=== PATIENT | male | born 1980 | race Caucasian/White ===

== ENCOUNTER 2019-10-17 12:49 | Emergency (ER) | payer SELFPAY ==
[2019-10-17 13:01] VITALS: BP 118/82; PULSE 105; RESP 16; TEMP 36.7; O2SAT 98; BMI 32.3
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
--- NOTE | 2019-10-17 13:16 | W.ED.ANIMALB ---
HPI - Animal Bite General: Chief Complaint: Animal Bite Stated Complaint: skunk bite Time Seen by Provider: 10/17/19 13:06 Source: patient Limitations: no limitations History of Present Illness: HPI narrative: 39-year-old male states he was bit by a skunk 2 days ago. He was bit in his left calf. He states had some body aches since then. He states he called animal control and they recommended come up for rabies vaccination. He denies any fevers. He denies any vomiting. Denies any worsening improving factors. MD complaint: animal bite Onset (ago): day(s) Associated symptoms: Deny chills, fever(s) or headache(s) Review of Systems Const: Denies: fever(s), chills, body aches or change in appetite Eyes: Denies: blurry vision or eye discomfort ENMT: Denies: throat pain or dental pain Card: Denies: chest pain Resp: Denies: dyspnea GI: Denies: abdominal pain, nausea, vomiting or diarrhea : Denies: dysuria Musc: Denies: neck pain or back pain Skin/Breast: Denies: rash Neuro: Denies: headache(s) Psych: Denies: depression Richardson/Lymph: Denies: easy bruising All/Imm: Denies: urticaria PFSH ED PFSH: Social History (Updated 10/17/19 @ 13:04 by Dinora Mulligan RN) Smoking and tobacco status: current every day smoker Physical Exam Const: COMMON NORMALS: no acute distress, patient oriented x3 and healthy appearing HENMT: COMMON NORMALS: normocephalic and atraumatic HEAD & SCALP: normocephalic and atraumatic Eye: COMMON NORMALS: Equal, round and reactive pupils present and EOMs intact bilaterally PUPIL: Yes Equal, round and reactive pupils present Neck/C-Spine: COMMON NORMALS: full ROM and supple Chest: COMMONS NORMALS: normal inspection of the chest and normal palpation of entire chest wall Resp: COMMON NORMALS: normal respiratory effort, No retractions, No use of accessory muscles and clear to auscultation bilaterally AUSCULTATION: clear to auscultation bilaterally Cardio: COMMON NORMALS: regular rate, regular rhythm and No murmurs present (Cardio) RATE: regular rate RHYTHM: regular rhythm GI: COMMON NORMALS: Normal to inspection, nondistended, normoactive bowel sounds present, Soft to palpation, non-tender and no masses PALPATION: Yes Soft to palpation Extremity: COMMON NORMALS: normal to inspection and full ROM Neuro: COMMON NORMALS: patient oriented x3, moves all extremities and no focal motor deficits Psych: COMMON NORMALS: mental status grossly normal, Normal thought process present and cooperative THOUGHT PROCESS: Normal thought process present Skin: COMMON NORMALS: no rashes or lesions noted NARRATIVE SKIN EXAM: Scratch and bite wound to left lower calf with no signs of infection GENERAL SKIN EXAM: no rashes or lesions noted Course Vital Signs: Vital signs: Vital Signs Temperature 98.1 F 10/17/19 13:01 Pulse Rate 105 H 10/17/19 13:01 Respiratory Rate 16 10/17/19 13:01 Blood Pressure 118/82 10/17/19 13:01 Pulse Oximetry 98 10/17/19 13:01 MDM - Animal Bite MDM Narrative: Medical decision making narrative: Patient presents here with a skunk bite. Patient's well-appearing here and has no signs of cellulitis. We will start him on rabies vaccine he is return in 3 days. Discharge Plan Discharge Patient Disposition: Home Clinical Impression: Bite by animal Condition: Stable Prescriptions: New ondansetron 4 mg tablet,disintegrating 4 mg PO Q6H PRN (Reason: nausea and vomiting) Qty: 14 RF: 0 Naprosyn 500 mg tablet 500 mg PO BID PRN (Reason: pain) Qty: 20 RF: 0 Discharge Orders: Discharge Order (Routine); Ordered 10/17/19 Ordered By: Rodney Summers Discharge Diet: Advance as tolerated Discharge Activity: Resume usual activity Patient Instructions: Rabies (ED) Activity Restrictions/Additional Instructions: return in 3 days Coding Level of Care Code ED Child And Adolescent Therapist for Cheng Torrez
[2019-10-17] MEDS: ketorolac 60 mg/2 mL INJ IM (13:30)
[2019-10-17] MEDS: ondansetron 2 mg/ML SDV 2 mL 4 MG IM (13:32)
--- NOTE | 2019-10-17 16:00 | PC.NURSE ---
nurse went to apologize for pt's wait and found room empty. ED provider notified. Attempts made to contact pt and ask him to return back to the ER. Pt did not return
== END 2019-10-17 15:00 | disposition home or self-care (01) ==
PROVIDERS: Emergency Provider Emergency Medicine
DX: S81.852A Open bite, left lower leg, initial encounter (principal); W55.81XA Bitten by other mammals, initial encounter; F17.210 Nicotine dependence, cigarettes, uncomplicated
CPT/HCPCS: 12345; 96372; 99281; 99283; J1885; J2405

== ENCOUNTER 2019-11-15 12:45 | Emergency (ER) | payer MEDICAID, SELFPAY ==
[2019-11-15] MEDS: ondansetron 2 mg/ML SDV 2 mL 4 MG IVP (12:45)
[2019-11-15 12:46] VITALS: BP 171/95; PULSE 125; RESP 18; O2SAT 100; BMI 29.0
[2019-11-15] MEDS: morphine 4 mg/mL SDV 1 mL 8 MG IVP ×2 (12:55→13:10)
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
[2019-11-15] MEDS: lactated ringers 1,000 ML 999 ML IV (13:07)
[2019-11-15 13:15] LABS: Basophils # 0.1 10^3/uL (0.0-0.1); Basophils % 0.6 %; Eosinophils # 0.2 10^3/uL (0.0-0.8); Eosinophils % 1.2 %; Hematocrit 44.9 % (42.0-52.0); Hemoglobin 14.5 g/dL (11.7-16.6); Lymphocytes # 6.3 10^3/uL (0.8-4.8); Lymphocytes % 40.2 %; Mean Corpuscular HGB Conc 32.3 g/dL (30.0-36.0); Mean Corpuscular Hemoglobin 28.8 pg (28.0-34.0); Mean Corpuscular Volume 89.1 fL (80-94); Mean Platelet Volume 9.8 fL (7.4-10.4); Monocytes # 1.1 10^3/uL (0.2-0.9); Monocytes % 7.2 %; Neutrophils # 7.87 10^3/uL (1.8-7.7); Neutrophils % 50.4 %; Nucleated Red Blood Cells % 0 %; Platelet Count 322 10^3/cmm (130-400); Red Blood Count 5.04 10^6/uL (4.1-5.3); Red Cell Distribution Width 13.2 % (12.1-15.1); White Blood Count 15.6 10^3/uL (4.0-10.0)
[2019-11-15 13:17] VITALS: BP 173/97; PULSE 94; RESP 22; O2SAT 100
[2019-11-15 13:20] VITALS: O2SAT 100
[2019-11-15 13:38] LABS: Alanine Aminotransferase 73 U/L (0-41); Albumin Level 4.6 g/dL (3.5-5.2); Alkaline Phosphatase 92 IU/L (40-130); Blood Urea Nitrogen 17 mg/dL (6-20); Calcium 9.4 mg/dL (8.5-10.5); Carbon Dioxide 23 mmol/L (22-29); Chloride 98 mmol/L (98-107); Globulin 3.8 g/dL (1.3-4.6); Glomerular Filtration Rate 82.8 mL/min (90-130); Glucose 119 mg/dL (65-115); Magnesium 2.1 mg/dL (1.7-2.3); Osmolality Calculated 282 mOsm/kg (285-295); Sodium 137 mmol/L (136-145); Total Bilirubin 0.2 mg/dL (0.15-1.2); Total Protein 8.4 g/dL (6.6-8.7)
[2019-11-15] MEDS: succinylcholine 20 mg/mL SDV 10mL 100 MG IVP (13:42)
[2019-11-15 13:43] VITALS: BP 178/111; PULSE 93; RESP 15; O2SAT 100
[2019-11-15] MEDS: propofol 1,000 MG/100 ML INJ 2.4 MG IV (13:45)
[2019-11-15] MEDS: tetanus-dipt-pertussis 0.5 mL SDV IM (13:45)
[2019-11-15 13:49] LABS: Anion Gap 19.9 (5-19); Aspartate Amino Transferase 56 U/L (0-40); Potassium 3.9 mmol/L (3.5-5.1)
[2019-11-15 13:50] LABS: Creatine Phosphokinase 359 U/L (39-308)
== END 2019-11-15 14:21 ==
PROVIDERS: Emergency Provider Family Medicine
DX: T21.22XA Burn of second degree of abdominal wall, initial encounter (principal); T24.211A Burn of second degree of right thigh, initial encounter; T24.212A Burn of second degree of left thigh, initial encounter; T24.231A Burn of second degree of right lower leg, initial encounter; T24.232A Burn of second degree of left lower leg, initial encounter; T22.20XA Burn of second degree of shoulder and upper limb, except wrist and hand, unspecified site, initial encounter; T20.29XA Burn of second degree of multiple sites of head, face, and neck, initial encounter; T23.201A Burn of second degree of right hand, unspecified site, initial encounter; T23.202A Burn of second degree of left hand, unspecified site, initial encounter; T31.50 Burns involving 50-59% of body surface with 0% to 9% third degree burns; X08.8XXA Exposure to other specified smoke, fire and flames, initial encounter; F17.210 Nicotine dependence, cigarettes, uncomplicated; Z23 Encounter for immunization
CPT/HCPCS: 12345; 31500; 71045; 80053; 82550; 83735; 85025; 90471; 90715; 96365; 96367; 96375; 96376; 99283; 99291; J0330; J2270; J2405; J2704; J3490

== ENCOUNTER 2019-12-07 06:27 | Emergency (ER) | payer MEDICAID, SELFPAY ==
[2019-12-07 06:31] VITALS: BP 150/89; PULSE 103; RESP 18; TEMP 36.7; O2SAT 99; BMI 29.0
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
[2019-12-07 06:57] VITALS: BP 150/89; PULSE 101; RESP 18; O2SAT 99
== END 2019-12-07 06:58 | disposition home or self-care (01) ==
LOC: ER 07:09
PROVIDERS: Emergency Provider Emergency Medicine
DX: L02.31 Cutaneous abscess of buttock (principal); F17.210 Nicotine dependence, cigarettes, uncomplicated
CPT/HCPCS: 10060; 12345; 99281

== ENCOUNTER 2020-05-22 12:18 | Emergency (ER) | payer MEDICAID, SELFPAY ==
[2020-05-22 12:28] VITALS: BP 157/94; PULSE 97; RESP 14; TEMP 36.9; O2SAT 98; BMI 26.6
--- NOTE | 2020-05-22 12:43 | USR_ITS ---
PROCEDURE INFORMATION: Exam: US Scrotum Exam date and time: 05/22/2020 12:48 PM Age: 39 years old Clinical indication: Groin pain and scrotum pain; Additional info: Left testicular pain ? torsion TECHNIQUE: Imaging protocol: Real-time ultrasound of the scrotum and contents with color Doppler and image documentation. COMPARISON: No relevant prior studies available. FINDINGS: Right testicle: The right testicle measures 4.0 x 2.3 x 3.5 cm. Homogeneous echotexture with no masses. Normal color flow and waveforms within the testicle. Left testicle: The left testicle measures 3.9 x 2.8 x 3.8 cm. There is a large lobular heterogeneously hypoechoic area at the upper pole occupying approximately 75% of the testicle with no blood flow; mild hyperemia within the remainder of the testicle which appears relatively homogeneous, with normal waveforms. Epididymides: The right epididymal head measures 14 x 8 mm and contains 14 x 5 mm and contains a few hypoechoic cysts measuring up to 2 mm. The left epididymal head measures approximately 14 x 8 mm, with hyperemia. Scrotum: Bilateral small hypoechoic hydroceles. US/US scrotum [id number] IMPRESSION: 1. Large lobular relatively hypoechoic area occupying approximately 75% of the left testicle with no blood flow, concerning for torsion with developing infarct. There is hyperemia within the remainder of the testicle as well as epididymis. 2. Normal right testicle. 3. Incidental note of small bilateral hydroceles and few punctate right epididymal cysts/spermatoceles.
--- NOTE | 2020-05-22 12:50 | W.ED.MALEGU ---
HPI - Male Genitourinary General: Chief complaint: Urogenital-Male Stated complaint: PAIN FROM L HIP UP TO NAVAL Time Seen by Provider: 05/22/20 12:30 Source: patient Mode of arrival: ambulatory Limitations: no limitations History of Present Illness: HPI Narrative: 39-year-old male who presents to the emergency department with left testicular pain of 3 days duration. The pain has been gradually getting worse and now radiates to his left inguinal region. Because of the severity of the pain he is here to be evaluated. MD Complaint: testicle pain Onset (ago): day(s) (3) Duration: constant Location: left testicle Radiation: left inguinal region Severity: severe Quality: stabbing Exacerbating factors: palpation and movement Associated symptoms: Deny discharge, dysuria, fevers/chills, hematuria, nausea, rash, swelling, urinary incontinence, urinary retention, mass or vomiting Review of Systems General: Reports: 10 or more systems reviewed and unremarkable except in HPI and below Const: Denies: fever(s), chills or body aches Eyes: Denies: change in vision or blurry vision ENMT: Denies: throat pain, enlarged tonsils, odynophagia, hoarseness, mouth pain or swelling of lips/tongue Card: Denies: palpitations, irregular heart rhythm, edema or swelling of feet/ankles Resp: Denies: dyspnea, productive cough or non-productive cough GI: Denies: nausea or vomiting : Denies: dysuria, urinary incontinence or hematuria Musc: Denies: neck pain, back pain or extremity swelling Skin/Breast: Denies: rash, pruritus or erythema Neuro: Denies: headache(s), numbness in extremities or weakness in extremities Endo: Denies: polyuria, polydipsia or tired all the time [facility] ED PFSH: Social History Smoking and tobacco status: current every day smoker Physical Exam Const: COMMON NORMALS: no acute distress, average body habitus, patient oriented x3, no limitations, healthy appearing, alert and well nourished HENMT: COMMON NORMALS: normocephalic, atraumatic and moist oral mucous membranes HEAD & SCALP: normocephalic and atraumatic Neck/C-Spine: COMMON NORMALS: no meningeal signs and no JVD Resp: COMMON NORMALS: normal respiratory effort, No retractions, No use of accessory muscles, clear to auscultation bilaterally and percussion normal AUSCULTATION: clear to auscultation bilaterally PERCUSSION: percussion normal Cardio: COMMON NORMALS: no JVD, regular rate, regular rhythm, S1 normal heart sound present, S2 normal heart sound present, No gallops present (Cardio), No clicks present (Cardio), No murmurs present (Cardio), No rub (Cardio) and Peripheral pulses 2+ throughout RATE: regular rate RHYTHM: regular rhythm HEART SOUNDS: S1 normal heart sound present and S2 normal heart sound present PERIPHERAL PULSES: Peripheral pulses 2+ throughout GI: COMMON NORMALS: Normal to inspection, nondistended, normoactive bowel sounds present, Soft to palpation, non-tender, No hepatosplenomegaly present, no masses and no bruits PALPATION: Yes Soft to palpation and Yes No hepatosplenomegaly present : COMMON NORMALS: Yes no CVA tenderness BLADDER/KIDNEY EXAM: Yes no CVA tenderness PENIS: uncircumcised MEATUS: meatus normal SCROTUM: Yes testes descended bilaterally TESTES: Yes testicular swelling Testicular swelling laterality: left, Yes testicular tenderness Testicular tenderness laterality: left and Yes high-riding testicle High-riding testicle laterality: left OTHER: Swollen indurated left testicle. It appears to lie in a [place] and Clapper formation. Back/Pelvis: COMMON NORMALS: no CVA tenderness Extremity: COMMON NORMALS: normal to inspection, full ROM, capillary refill normal, no calf tenderness and no pedal edema Neuro: COMMON NORMALS: patient oriented x3 SENSORIUM/ORIENTATION: Yes alert MENINGEAL SIGNS: Yes no meningeal signs Course Reevaluation(s): Reevaluation #1: Discussed his imaging findings with him. Explained that he likely has testicular torsion and will require emergency surgery. The urologist in this facility is on vacation for the next week and so he will need to be transferred urgently as soon as possible. He preferred to go to [facility] as he has been treated there in the past. Time: 13:50 Consultations: Consultation #1: Discussed the patient with Dr. Willoughby, ED physician at [facility] in [place] and he kindly accepted the patient to his service. Time: 14:03 Vital Signs: Vital signs: Vital Signs Temperature 98.4 F 05/22/20 12:28 Pulse Rate 94 05/22/20 14:11 Respiratory Rate 18 05/22/20 14:26 Blood Pressure 149/92 05/22/20 14:11 Pulse Oximetry 98 05/22/20 14:11 MDM - Male MDM Narrative: Medical decision making narrative: 39-year-old male who presents to the emergency department with left testicular pain. On evaluation in the emergency department the symptoms are consistent with testicular torsion. He is emergently transferred to [facility] in [place] for further evaluation and management as the urologist in this facility is on vacation for the next week. Medical Records: Attestation: I reviewed the patient's medical records. Lab Data: Labs: Lab Results 05/22/20 Range/Units 13:43 Urine Color Dark yellow (Yellow) Urine Appearance Clear (CLEAR) Urine pH 6 (5-7) Ur Specific Gravit y 1.020 (1.005-1.030) Urine Protein Neg (Negative) Urine Glucose (UA) 1+ (Normal) Urine Ketones Negative (Negative) Urine Blood Neg (Negative) Urine Nitrate Negative (Negative) Urine Bilirubin Neg (Negative) Urine Urobilinogen 1 H (Negative) mg/dL Ur Leukocyte Emma ase Negative (Negative) Imaging Data: US: Attestation: I personally reviewed and interpreted this imaging study as follows: Radiologist's impression: [address] [address] Ultrasound Report Signed with Addenda Patient: Eduardo Ochoa #: [id number] : 1980Acct#:[id number] Age/Sex: 39 / MADM Date: 05/22/20 Loc: [facility]/Bed: Attending Dr: Ordering Provider/Ordering MD: Adriane Sorensen MD, [facility] Date of Service: 05/22/20 Procedure(s): US scrotum [id number] Accession Number(s): [id number] Report Number: [id number] ADDENDUM US/US scrotum [id number] Addendum: Findings discussed with and acknowledged by ADRIANE Sosa at 05/22/2020 1:59 PM CDT with any questions answered. Addendum Dictated By: Chuck Noonan MD Addendum Signed By: Chuck Noonan MDSigned Date/Time:05/22/20 1401 Addendum Cosigned By: PROCEDURE INFORMATION: Exam: US Scrotum Exam date and time: 05/22/2020 12:48 PM Age: 39 years old Clinical indication: Groin pain and scrotum pain; Additional info: Left testicular pain ? torsion TECHNIQUE: Imaging protocol: Real-time ultrasound of the scrotum and contents with color Doppler and image documentation. COMPARISON: No relevant prior studies available. FINDINGS: Right testicle: The right testicle measures 4.0 x 2.3 x 3.5 cm. Homogeneous echotexture with no masses. Normal color flow and waveforms within the testicle. Left testicle: The left testicle measures 3.9 x 2.8 x 3.8 cm. There is a large lobular heterogeneously hypoechoic area at the upper pole occupying approximately 75% of the testicle with no blood flow; mild hyperemia within the remainder of the testicle which appears relatively homogeneous, with normal waveforms. Epididymides: The right epididymal head measures 14 x 8 mm and contains 14 x 5 mm and contains a few hypoechoic cysts measuring up to 2 mm. The left epididymal head measures approximately 14 x 8 mm, with hyperemia. Scrotum: Bilateral small hypoechoic hydroceles. US/US scrotum [id number] IMPRESSION: 1. Large lobular relatively hypoechoic area occupying approximately 75% of the left testicle with no blood flow, concerning for torsion with developing infarct. There is hyperemia within the remainder of the testicle as well as epididymis. 2. Normal right testicle. 3. Incidental note of small bilateral hydroceles and few punctate right epididymal cysts/spermatoceles. Dictated By:Chuck Noonan MD Signed By:Chuck Noonan MDSigned Date/Time:05/22/20 1344 DD/ 1343 Discharge Plan Discharge Patient Disposition: Xfer Short-Term Hosp Clinical Impression: Left testicular torsion Condition: Stable Discharge Orders: Transfer Out of Facility (Order); Ordered 03/20/21 Ordered By: Adriane Sorensen Coding Level of Care Code ED Seasonal Delivery Driver for Chg Fwd Exam Comprehensive
[2020-05-22 13:55] LABS: Add Urine Microscopic? NO
[2020-05-22 14:04] LABS: Bilirubin Urine Neg (Negative); Blood Urine Neg (Negative); Glucose Urine UA 1+ (Normal); Ketones Urine Negative (Negative); Leukocyte Esterase Urine Negative (Negative); Nitrate Urine Negative (Negative); Protein Urine Neg (Negative); Urine Appearance Clear (CLEAR); Urine Color Dark Yellow (Yellow); Urobilinogen Urine 1 mg/dL (Negative); pH Urine 6 (5-7)
[2020-05-22 14:10] VITALS: BP 149/92; PULSE 94; RESP 18; O2SAT 98
[2020-05-22 14:11] VITALS: BP 149/92; PULSE 94; RESP 18; O2SAT 98
[2020-05-22 14:26] VITALS: RESP 18
[2020-05-22] MEDS: ondansetron 2 mg/ML SDV 2 mL 4 MG IVP (14:26)
[2020-05-22] MEDS: morphine 4 mg/mL SDV 1 mL IVP (14:26)
== END 2020-05-22 14:37 | disposition short-term general hospital (02) ==
PROVIDERS: Emergency Provider Family Medicine
DX: N44.00 Torsion of testis, unspecified (principal); F17.210 Nicotine dependence, cigarettes, uncomplicated
CPT/HCPCS: 76870; 81003; 96374; 96375; 99285; J2270; J2405

== ENCOUNTER 2023-10-02 14:49 | Emergency (ER) | payer MEDICAID, SELFPAY ==
[2023-10-02 14:53] VITALS: BP 144/90; PULSE 94; RESP 18; TEMP 37.3; O2SAT 99
--- NOTE | 2023-10-02 14:58 | ED_ITS ---
HPI - Headache 2 General: Chief Complaint: Headache Stated Complaint: [place] 2 days Time Seen by Provider: 10/02/23 14:52 Source: patient Mode of arrival: ambulatory Limitations: no limitations History of Present Illness: Patient is a 43-year-old male who presents to ED today with complaint of a headache over the past 2 days. No known injury or trauma. He states he has also felt feverish with some body aches. No documented fevers. He arrives here with stable vital signs. Patient states he is homeless so has been out in the heat recently. Previous drug/alcohol use but states he has been clean for over a month and a half . Patient is not having any neck or back pain. He is not having any neurologic deficits. No visual changes. Denies nausea or vomiting. He has no history of migraine headaches. He is currently rating his pain at a 5/10. Patient states it was worse when he woke up this morning and has improved during the day. MD elicited complaint: headache Onset (ago): day(s) Severity: moderate Pain scale (0-10): 5 Exacerbating factors: none Associated symptoms: Reports fever(s) (subjective); Deny chest pain, confusion, malaise, nausea, rash or vomiting Treatments prior to arrival: none Review of Systems 2 Const: Reports: fever(s) (subjective) and body aches; Denies: chills, fatigue or malaise Eyes: Denies: change in vision, blurry vision, photophobia, floaters or seeing flashes ENMT: Denies: throat pain, odynophagia, ear or mastoid pain, nasal discharge, nasal congestion or sinus pain Card: Denies: chest pain or palpitations Resp: Denies: dyspnea GI: Denies: abdominal pain, nausea, vomiting or diarrhea Musc: Denies: neck pain, back pain, extremity pain or joint pain Skin/Breast: Denies: rash Neuro: Reports: headache(s); Denies: numbness in extremities, weakness in extremities, sensory changes, lack of coordination, difficulty walking, frequent falls, dizziness, vertigo, confusion, behavioral changes, Slurred speech present, difficulty communicating thoughts or seizure-like activity PFSH ED 2 PFSH: Medical History Psychiatric care Social History (Reviewed 10/02/23 @ 15:16 by KALEB Ruvalcaba Smoking and tobacco/nicotine status: current every day tobacco/nicotine user Physical Exam 2 Const: COMMON NORMALS: no acute distress, average body habitus, patient oriented x3, no limitations, healthy appearing, alert and well nourished G ENERAL APPEARANCE: cooperative ORIENTATION/CONSCIOUSNESS: Yes awake, Yes oriented to person, Yes oriented to place and Yes oriented to time HENMT: COMMON NORMALS: normocephalic and atraumatic HEAD & SCALP: normal to inspection, normocephalic and atraumatic FACE & SINUS: normal facial exam TEETH & GINGIVA: Yes poor dentition THROAT: posterior oropharynx normal Eye: COMMON NORMALS: Equal, round and reactive pupils present and EOMs intact bilaterally GENERAL EYE: appearance normal, both eyes and all related structures and normal light reflex PUPIL: Yes Equal, round and reactive pupils present DIRECT OPHTHALMOSCOPY: Yes normal light reflex Neck/C-Spine: COMMON NORMALS: full ROM, no lymphadenopathy, supple and no meningeal signs CERVICAL SPINE: Yes cervical ROM normal, No pain with cervical ROM and No Cervical spine tenderness Chest: COMMONS NORMALS: normal inspection of the chest Resp: COMMON NORMALS: normal respiratory effort and clear to auscultation bilaterally AUSCULTATION: clear to auscultation bilaterally Cardio: COMMON NORMALS: regular rate and regular rhythm RATE: regular rate RHYTHM: regular rhythm GI: COMMON NORMALS: Normal to inspection, nondistended, normoactive bowel sounds present, Soft to palpation, non-tender, No hepatosplenomegaly present and no masses PALPATION: Yes Soft to palpation and Yes No hepatosplenomegaly present : COMMON NORMALS: Yes no CVA tenderness BLADDER/KIDNEY EXAM: Yes no CVA tenderness Back/Pelvis: COMMON NORMALS: no CVA tenderness, thoracic and lumbar spine normal to inspection, no thoracic nor lumbar tenderness, thoraco-lumbar ROM normal and straight leg raise negative bilaterally Extremity: COMMON NORMALS: normal to inspection GENERAL: Yes normal exam except as noted Neuro: RYAN COMA SCALE: document GCS findings [place] coma scale eye opening: Spontaneous Ryan coma scale verbal response: Orientated [place] coma scale motor response: Obey commands Ryan coma scale total score: 15 COMMON NORMALS: patient oriented x3, CN's II-XII intact bilaterally, moves all extremities, no focal motor deficits, no sensory deficits noted and gait normal SENSORIUM/ORIENTATION: Yes alert, Yes oriented to person, Yes oriented to place and Yes oriented to time MENINGEAL SIGNS: Yes no meningeal signs Skin: COMMON NORMALS: no rashes or lesions noted GENERAL SKIN EXAM: no rashes or lesions noted Course 2 Vital Signs: Vital signs: Vital Signs Temperature 99.1 F 10/02/23 14:53 Pulse Rate 94 10/02/23 14:53 Respiratory Rate 18 10/02/23 14:53 Blood Pressure 144/90 10/02/23 14:53 Pulse Oximetry 99 10/02/23 14:53 Oxygen Delivery Me thod Room Air 10/02/23 14:53 MDM - Headache Medical Decision Making Vitals stable. Labs overall unremarkable. Mild transaminitis that is unchanged compared to 2019. 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 States he received treatment while incarcerated. After fluids and meds here, he no longer has a headache. Rating a 0/10. Suspect dehydration for etiology as he is homeless and out in the heat all day. Return precautions given. Differential Diagnosis Likely headache Medical Records I reviewed the patient's medical records. Lab Data I reviewed the patient's lab results. 10/02/23 15:10 10/02/23 15:[address] 10/02/23 15:07 IMPRESSION: No acute intracranial abnormality. Laboratory Results WBC 9.57 10^3/uL (3.29-11.43) 10/02/23 15:10 RBC 4.91 10^6/uL (3.85-5.65) 10/02/23 15:10 Hgb 14.30 g/dL (11.27-16.99) 10/02/23 15:10 Hct 44.6 % (37-53) 10/02/23 15:10 MCV 90.8 fl (82-101) 10/02/23 15:10 MCH 29.1 pg (27-33) 10/02/23 15:10 MCHC 32.1 g/dL (30-55) 10/02/23 15:10 RDW 13.9 % (12.1-15.1) 10/02/23 15:10 Plt Count 232 10^3/cmm (157-399) 10/02/23 15:10 MPV 8.8 fL (7.4-10.4) 10/02/23 15:10 Neut % (Auto) 64.9 % 10/02/23 15:10 Lymph % (Auto) 22.7 % 10/02/23 15:10 [place] % (Auto) 8.5 % 10/02/23 15:10 Eos % (Auto) 2.8 % 10/02/23 15:10 Baso % (Auto) 0.6 % 10/02/23 15:10 Neut # (Auto) 6.21 10^3/uL (1.8-7.7) 10/02/23 15:10 Lymph # (Auto) 2.2 10^3/uL (0.8-4.8) 10/02/23 15:10 [place] # (Auto) 0.8 10^3/uL (0.2-0.9) 10/02/23 15:10 Eos # (Auto) 0.3 10^3/uL (0.0-0.8) 10/02/23 15:10 Baso # (Auto) 0.1 10^3/uL (0.0-0.1) 10/02/23 15:10 Nucleated RBC % (auto) 0 % 10/02/23 15:10 Nucleated RBCs # 0.0 /100WBC 10/02/23 15:10 Sodium 138 mmol/L (136-145) 10/02/23 15:10 Potassium 4.7 mmol/L (3.5-5.1) 10/02/23 15:10 Chloride 103 mmol/L (98-107) 10/02/23 15:10 Carbon Dioxide 28 mmol/L (22-29) 10/02/23 15:10 Anion Gap 11.7 (5-19) 10/02/23 15:10 BUN 12 mg/dL (6-20) 10/02/23 15:10 Creatinine 1.3 mg/dL (0.7-1.2) H 10/02/23 15:10 GFR Calculation 60.0 mL/min (90-130) L 10/02/23 15:10 Glucose 92 mg/dL (65-115) 10/02/23 15:10 Calculated Osmolality 285 mOsm/kg (285-295) 10/02/23 15:10 Calcium 8.8 mg/dL (8.5-10.5) 10/02/23 15:10 Total Bilirubin 0.2 mg/dL (0.15-1.2) 10/02/23 15:10 AST 47 U/L (0-40) H 10/02/23 15:10 ALT 66 U/L (0-41) H 10/02/23 15:10 Alkaline Phosphatase 94 U/L (40-130) 10/02/23 15:10 Total Protein 7.3 g/dL (6.6-8.7) 10/02/23 15:10 Albumin 4.1 g/dL (3.5-5.2) 10/02/23 15:10 Globulin 3.2 g/dL (1.3-4.6) 10/02/23 15:10 All radiology interpretation(s) finalized by discharge Discharge Plan Discharge Patient Disposition: Home Clinical Impression: Dehydration Headache Qualifiers: Headache type: unspecified Headache chronicity pattern: acute headache I ntractability: not intractable Qualified Code(s): R51.9 - Headache, unspecified Condition: Stable Prescriptions: No Action No Known Home Medications Discharge Orders: Discharge ED (Routine); Ordered 10/02/23 Ordered By: Aparna Keller Coding Level of Care Code ED Drop Count Associate for Ludag Lore
--- NOTE | 2023-10-02 15:07 | CTR_ITS ---
PROCEDURE INFORMATION: Exam: CT Head Without Contrast Exam date and time: 10/02/2023 3:18 PM Age: 43 years old Clinical indication: Pain; Headache TECHNIQUE: Imaging protocol: Computed tomography of the head without contrast. Radiation optimization: All CT scans at this facility use at least one of these dose optimization techniques: automated exposure control; mA and/or kV adjustment per patient size (includes targeted exams where dose is matched to clinical indication); or iterative reconstruction. COMPARISON: No relevant prior studies available. RADIATION DOSE METRICS: Total DLP (mGy-cm): 1139 FINDINGS: Brain: No midline shift. Ventricles, cisterns, and sulci are normal. No mass, acute infarct, hemorrhage, or extraaxial fluid collection. Cerebral ventricles: No ventriculomegaly. Paranasal sinuses: Visualized sinuses are unremarkable. No fluid levels. Mastoid air cells: Visualized mastoid air cells are well aerated. Bones: Unremarkable. No acute fracture. Soft tissues: Unremarkable. CT/CT head wo con* [id number] IMPRESSION: No acute intracranial abnormality.
[2023-10-02 15:16] LABS: Basophils # 0.1 10^3/uL (0.0-0.1); Basophils % 0.6 %; Eosinophils # 0.3 10^3/uL (0.0-0.8); Eosinophils % 2.8 %; Hematocrit 44.6 % (37-53); Lymphocytes # 2.2 10^3/uL (0.8-4.8); Lymphocytes % 22.7 %; Mean Corpuscular HGB Conc 32.1 g/dL (30-55); Mean Corpuscular Hemoglobin 29.1 pg (27-33); Mean Corpuscular Volume 90.8 fl (82-101); Mean Platelet Volume 8.8 fL (7.4-10.4); Monocytes # 0.8 10^3/uL (0.2-0.9); Monocytes % 8.5 %; Neutrophils # 6.21 10^3/uL (1.8-7.7); Neutrophils % 64.9 %; Nucleated Red Blood Cells % 0 %; Platelet Count 232 10^3/cmm (157-399); Red Blood Count 4.91 10^6/uL (3.85-5.65); Red Cell Distribution Width 13.9 % (12.1-15.1); White Blood Count 9.57 10^3/uL (3.29-11.43)
[2023-10-02] MEDS: sodium chloride 0.9% 1,000 ML 999 ML IV (15:28)
[2023-10-02] MEDS: ketorolac 60 mg/2 mL INJ 30 MG IVP (15:29)
[2023-10-02 15:30] VITALS: BP 125/78; PULSE 79; O2SAT 97
[2023-10-02] MEDS: ondansetron 2 mg/ML SDV 2 mL 4 MG IVP (15:31)
[2023-10-02 15:43] LABS: Alanine Aminotransferase 66 U/L (0-41); Albumin Level 4.1 g/dL (3.5-5.2); Alkaline Phosphatase 94 U/L (40-130); Blood Urea Nitrogen 12 mg/dL (6-20); Calcium 8.8 mg/dL (8.5-10.5); Carbon Dioxide 28 mmol/L (22-29); Chloride 103 mmol/L (98-107); Creatinine Clr Calc Pharmacy 70.3385; Globulin 3.2 g/dL (1.3-4.6); Glucose 92 mg/dL (65-115); Osmolality Calculated 285 mOsm/kg (285-295); Sodium 138 mmol/L (136-145); Total Bilirubin 0.2 mg/dL (0.15-1.2); Total Protein 7.3 g/dL (6.6-8.7)
[2023-10-02 15:52] LABS: Anion Gap 11.7 (5-19); Aspartate Amino Transferase 47 U/L (0-40); Potassium 4.7 mmol/L (3.5-5.1)
[2023-10-02 16:00] VITALS: BP 118/78; PULSE 79; O2SAT 96
[2023-10-02 16:14] VITALS: BP 111/84; PULSE 80; O2SAT 98
== END 2023-10-02 16:14 | disposition home or self-care (01) ==
PROVIDERS: Emergency Provider Physician Assistant
DX: R51.9 Headache, unspecified (principal); E86.0 Dehydration; Z72.0 Tobacco use
CPT/HCPCS: 70450; 80053; 85025; 96374; 96375; 99285; J1885; J2405; J7030

== ENCOUNTER 2023-10-16 11:22 | Emergency (ER) | payer MEDICAID, SELFPAY ==
[2023-10-16 11:27] VITALS: BP 180/98; PULSE 91; RESP 17; TEMP 36.7; O2SAT 97; BMI 27.9
--- NOTE | 2023-10-16 12:48 | ED_ITS ---
HPI - Extremity Problem General: Chief complaint: Extremity Injury, Upper Stated complaint: Left arm swelling Time Seen by Provider: 10/16/23 12:24 Source: patient Mode of arrival: ambulatory Limitations: no limitations History of Present Illness: Patient is a nice 43-year-old male presents to ED today with complaint of pain and swelling to the dorsum of his left forearm. According to triage patient states he bumped the area yesterday and began noticing swelling following this however patient tells me following his discharge from the emergency department on 10/01 is when he began noticing symptoms. He does not feel like symptoms have worsened since onset. He states he is still able to move the extremity and use it normally. Denies to me any recent injury or trauma. Denies drug use. Reed nt states he cannot remember if nursing staff attempted IV on that arm or not during his last visit. MD Complaint: extremity pain and extremity swelling Onset (ago): day(s) Pain Consistency: constant Location: left and upper extremity Radiation: none Relieving factors: nothing Exacerbating factors: range of motion Associated symptoms: Reports no associated symptoms; Deny chest pain, fever(s) or rash Related Data Home Medications Medication Instructions Recorded Confirmed No Known Home Medications 05/22/20 05/22/20 Allergies Allergy/AdvReac Type Severity Reaction Status Date / Time aspirin Allergy Unknown Verified 11/15/19 13:07 Penicillins Allergy Unknown Verified 11/15/19 13:07 Review of Systems Const: Denies: fever(s), chills, body aches, fatigue or malaise Card: Denies: chest pain Resp: Denies: dyspnea Musc: Reports: extremity pain and extremity swelling; Denies: neck pain, back pain, joint pain or joint swelling Skin/Breast: Denies: rash or erythema Neuro: Denies: headache(s), numbness in extremities, weakness in extremities or sensory changes PFS ED PFSH: Medical History Psychiatric care Social History Smoking and tobacco/nicotine status: current every day tobacco/nicotine user Physical Exam Const: COMMON NORMALS: no acute distress, average body habitus, patient oriented x3, no limitations, healthy appearing, alert and well nourished Extremity: COMMON NORMALS: full ROM, capillary refill normal, no joint enlargement and no clubbing, cyanosis or edema GENERAL: Yes normal exam except as noted LEFT UPPER EXTREMITY: Yes lower arm Left lower arm: Yes palpation (normal) and Yes neurovascular exam (normal) OTHER: patient has some mild tenderness and swelling to the extensor/posterior forearm; area seems to run along a specific extensor muscle; possibility of a a superficial phelbitis given recent hospital visit and possible IV placement; he maintains full ROM of digits/wrist without any notable discomfort; there is no redness/warmth/streaking to suggest infection; no abscess formation; no obvious track garcia or abrasions Neuro: COMMON NORMALS: patient oriented x3, moves all extremities, no focal motor deficits and no sensory deficits noted SENSORIUM/ORIENTATION: Yes alert Course Vital Signs: Vital signs: Vital Signs Temperature 98.1 F 10/16/23 11:27 Pulse Rate 91 10/16/23 11:27 Respiratory Rate 17 10/16/23 11:27 Blood Pressure 180/98 10/16/23 11:27 Pulse Oximetry 97 10/16/23 11:27 Oxygen Delivery Me thod Room Air 10/16/23 11:27 MDM - Extremity (Nontraumatic) Medical Decision Making DDx-muscle strain/overuse, tendonitis, superficial phlebitis/thrombophlebitis. Recommend ice/heat, elevation, rest, NSAIDS, and follow up with PCP in a week or two if symptoms or not improving. Strict return ED precautions given. No radiology studies performed this visit Discharge Plan Discharge Patient Disposition: Home Clinical Impression: Left forearm pain Condition: Stable Prescriptions: No Action No Known Home Medications Discharge Orders: Discharge ED (Routine); Ordered 10/16/23 Ordered By: Aparna Keller Activity Restrictions/Additional Instructions: As we discussed I would like you to start applying ice to the area as well as elevating it and taking some [id number] anti-inflammatory such as Aleve or Ibuprofen. I would like you to follow-up with your primary care provider in a week or 2 if symptoms do not seem to be improving. As we discussed you need to return to the emergency department for worsening swelling or pain, redness/warmth to the area, red streaking up your arm, abscess formation, or any other concerns you may have. Coding Level of Care Code ED International Account Representative for Cheng Torrez
== END 2023-10-16 13:00 | disposition home or self-care (01) ==
PROVIDERS: Emergency Provider Physician Assistant
DX: M79.632 Pain in left forearm (principal); Z72.0 Tobacco use
CPT/HCPCS: 99282

== ENCOUNTER 2024-04-04 14:52 | Emergency (ER) | payer MEDICAID, SELFPAY ==
[2024-04-04 15:05] VITALS: BP 154/88; PULSE 107; RESP 16; TEMP 36.9; O2SAT 97; BMI 29.0
--- NOTE | 2024-04-04 15:25 | XR_ITS ---
WS: [id number] LUMBAR SPINE: 3 VIEWS TECHNIQUE: AP, lateral and L5-S1 spot. HISTORY: back pain COMPARISON: None available. Lumbar vertebra are normally aligned. No significant loss of disc space height. Large clawlike osteophyte from the anterior superior endpla te of L4. Pedicles are all intact. SI joints are symmetric bilaterally. No soft tissue abnormalities. XR/XR lumbar spine 2-3V* [id number] IMPRESSION: 1. No lumbar spine compression fracture. 2. Mild lumbar spondylosis. Largest curvilinear osteophyte L4.
--- NOTE | 2024-04-04 15:35 | ED_ITS ---
HPI - Back Pain/Injury General: Chief Complaint: Back Pain/Injury Stated Complaint: low back pain Time Seen by Provider: 04/04/24 15:22 Source: patient Mode of arrival: ambulatory Limitations: no limitations History of Present Illness: 43-year-old male states been having back pain over the last week. States that his right lower back he states it comes and goes seems to be worse with activity and palpation. Denies any specific injuries he denies any testicle pain to me. Denies any abdominal pain denies any vomiting diarrhea rates his pain a 4 out of 10 currently Associated symptoms: Deny abdominal pain, chills, fever(s), nausea or vomiting Related Data Previous Rx's Medication Instructions Recorded methocarbamol 750 mg tablet 750 mg PO Q6H PRN spasms #20 tabs 04/04/24 naproxen 500 mg tablet (Naprosyn) 500 mg PO BID PRN pain #20 tabs 04/04/24 Allergies Allergy/AdvReac Type Severity Reaction Status Date / Time aspirin Allergy Unknown Verified 04/04/24 15:05 Penicillins Allergy Unknown Verified 04/04/24 15:05 Review of Systems Const: Denies: fever(s), chills, body aches or change in appetite ENMT: Denies: throat pain or dental pain Card: Denies: chest pain Resp: Denies: dyspnea GI: Denies: abdominal pain, nausea, vomiting or diarrhea Musc: Reports: back pain; Denies: neck pain Skin/Breast: Denies: rash Neuro: Denies: headache(s) PFSH ED PFSH: Medical History Psychiatric care Social History Smoking and tobacco/nicotine status: current every day tobacco/nicotine user (vape) Physical Exam Const: COMMON NORMALS: no acute distress, patient oriented x3 and healthy appearing HENMT: COMMON NORMALS: normocephalic and atraumatic HEAD & SCALP: normocephalic and atraumatic Eye: COMMON NORMALS: Equal, round and reactive pupils present and EOMs intact bilaterally PUPIL: Yes Equal, round and reactive pupils present Neck/C-Spine: COMMON NORMALS: full ROM and supple Chest: COMMONS NORMALS: normal inspection of the chest and normal palpation of entire chest wall Resp: COMMON NORMALS: normal respiratory effort, No retractions, No use of accessory muscles and clear to auscultation bilaterally AUSCULTATION: clear to auscultation bilaterally Cardio: COMMON NORMALS: regular rate, regular rhythm and No murmurs present (Cardio) RATE: regular rate RHYTHM: regular rhythm GI: COMMON NORMALS: Normal to inspection, nondistended, normoactive bowel sounds present, Soft to palpation, non-tender and no masses PALPATION: Yes Soft to palpation Back/Pelvis: OTHER: Paraspinal tenderness over the lumbar spine no midline tenderness Extremity: COMMON NORMALS: normal to inspection and full ROM Neuro: COMMON NORMALS: patient oriented x3, moves all extremities and no focal motor deficits Psych: COMMON NORMALS: mental status grossly normal, Normal thought process present and cooperative THOUGHT PROCESS: Normal thought process present Skin: COMMON NORMALS: no rashes or lesions noted and no wounds GENERAL SKIN EXAM: no rashes or lesions noted Course Vital Signs: Vital signs: Vital Signs Temperature 98.4 F 04/04/24 15:05 Pulse Rate 107 H 04/04/24 15:05 Respiratory Rate 16 04/04/24 15:05 Blood Pressure 154/88 04/04/24 15:05 Pulse Oximetry 97 04/04/24 15:05 MDM - Back Pain/Injury Medical Decision Making Patient presents with low back pain is likely muscular in nature he is stable for discharge we will place him on Naprosyn Robaxin he is follow-up with his PCP return if worsening Medical Records I reviewed the patient's medical records. Labs Radiology Impressions Lumbar Spine X-Ray 04/04/24 15:25 IMPRESSION: 1. No lumbar spine compression fracture. 2. Mild lumbar spondylosis. Largest curvilinear osteophyte L4. All radiology interpretation(s) finalized by discharge Discharge Plan Discharge Patient Disposition: Home Clinical Impression: Low back pain Condition: Stable Prescriptions: New methocarbamol 750 mg tablet 750 mg PO Q6H PRN (Reason: spasms) Qty: 20 0RF naproxen [Naprosyn] 500 mg tablet 500 mg PO BID PRN (Reason: pain) Qty: 20 0RF Discharge Orders: Discharge ED (Routine); Ordered 04/04/24 Ordered By: Rodney Summers Discharge Diet: Advance as tolerated Discharge Activity: Resume usual activity Patient Instructions: Back Pain (ED) Coding Level of Care Code ED Multiple Wire Sawyer for Cheng Torrez
[2024-04-04] MEDS: dexamethasone 10 mg/mL INJ IM (15:49)
[2024-04-04] MEDS: methocarbamol 750 mg Tablet 1500 MG PO (15:49)
[2024-04-04] MEDS: ketorolac 60 mg/2 mL INJ IM (15:49)
[2024-04-04 16:06] VITALS: BP 154/98; PULSE 100; O2SAT 98
== END 2024-04-04 16:07 | disposition home or self-care (01) ==
PROVIDERS: Emergency Provider Emergency Medicine
DX: M54.50 Low back pain, unspecified (principal); F17.290 Nicotine dependence, other tobacco product, uncomplicated
CPT/HCPCS: 72100; 96372; 99284; J1100; J1885

== ENCOUNTER 2024-05-17 18:39 | Emergency (ER) | payer MEDICAID, SELFPAY ==
[2024-05-17 18:49] VITALS: BP 141/102; PULSE 99; RESP 20; TEMP 36.6; O2SAT 96; BMI 26.6
--- NOTE | 2024-05-17 18:49 | ECG_ITS ---
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
--- NOTE | 2024-05-17 19:08 | ED.C_ITS ---
HPI - Psych 2 General: Chief Complaint: Psychiatric Symptoms Stated Complaint: mhe Time Seen by Provider: 05/17/24 18:41 History of Present Illness: 43-year-old man who presents to the [facility] room by ambulance and with police. He was seen at the crisis center. He he tells me he was feeling agitated and needed to get some help and get things off his chest so he went there and vented and felt better and so he left. However patient has been placed on a 96-hour hold because there was concern he may be a danger to others. They think he is using methamphetamine. He seems very paranoid and delusional and they think this could lead to violent behavior towards others in the community. Related Data Previous Rx's ?Medication ?Instructions ?Recorded risperidone 1 mg tablet 1 mg PO BID #60 tabs 5 trazodone 50 mg tablet 100 mg (2 x 50 mg) PO .HS NC N 04/30/24 insomnia #60 tabs Allergies Allergy/AdvReac Type Severity Reaction Status Date / Time aspirin Allergy Unknown Verified 04/30/24 08:34 Penicillins Allergy Unknown Verified 04/30/24 08:34 Review of Systems 2 Narrative: Constitutional symptoms: Negative except as documented in HPI. Skin symptoms: Negative except as documented in HPI. Eye symptoms: Negative except as documented in HPI. ENMT symptoms: Negative except as documented in HPI. Respiratory symptoms: Negative except as documented in HPI. Cardiovascular symptoms: Negative except as documented in HPI. Gastrointestinal symptoms: Negative except as documented in HPI. Genitourinary symptoms: Negative except as documented in HPI. Musculoskeletal symptoms: Negative except as documented in HPI. Neurologic symptoms: Negative except as documented in HPI. Psychiatric symptoms: Negative except as documented in HPI. Endocrine symptoms: Negative except as documented in HPI. PFSH ED 2 PFSH: Medical History Psychiatric care Social History Smoking and tobacco/nicotine status: current every day tobacco/nicotine user (vape) Physical Exam 2 Narrative: EXAM NARRATIVE: General: Alert, no acute distress. Skin: Warm, dry. Head: Normocephalic, atraumatic. Neck: Supple, trachea midline. Eye: Extraocular movements are intact. Ears, nose, mouth and throat: mucosa moist. Cardiovascular: Regular, Normal peripheral perfusion. Respiratory: Lungs are clear to auscultation, respirations are non-labored, breath sounds are equal, Symmetrical chest wall expansion. Gastrointestinal: Soft, Nontender, Non distended Musculoskeletal: Normal ROM, no deformity. Neurological: Alert and oriented, No focal neurological deficit observed. Psychiatric: Cooperative, patient does appear quite agitated and very pressured speech. Course 2 Vital Signs: Vital signs: Vital Signs Temperature 97.9 F 05/17/24 18:49 Pulse Rate 99 05/17/24 18:49 Respiratory Rate 21 H 05/17/24 19:23 Blood Pressure 141/102 05/17/24 18:49 Pulse Oximetry 99 05/17/24 19:23 Oxygen Delivery Me thod Room Air 05/17/24 19:23 MDM - Psych Medical Decision Making Medical decision making: Differential diagnosis for patient with reported psychosis with plan for psychiatric admission including but not limited to and based on the above HPI, review of systems and physical exam: concerns for infection, alcohol intoxication, cardiac issues or other medical problems prior to psychiatric admission. Orders placed to evaluate differential diagnosis based on the above differential, HPI and physical exam labwork, ekg ordered to evaluate the pathologies and to clear the patient medically prior to psychiatric admission Lab Review: Laboratory results were reviewed and interpreted by myself the emergency room physician. - Medically cleared. - EKG shows no ischemic changes. - Blood alcohol level is negative, as well as salicylate and Tylenol. ?Urinalysis is pending - No anemia. - BUN and creatinine are within normal limits. I reviewed the patient's medical record. Consultation: I spoke with Dr. Haq who agrees to admission. Assessment and plan: Paranoia Delusions Psychosis Agitation ? IM Wil and Alfonzo in the emergency room. ?96-hour hold placed by a sausage machine operator via crisis center -Admission to neuropsychiatric unit for continued evaluation and treatment. - All lab work was reviewed and interpreted personally by myself, the ER physician - Evaluation and treatment of this problem were appropriate in the emergency setting Lab Data 05/17/24 18:59 05/17/24 18:59 Laboratory Results WBC 7.81 10^3/uL (3.29-11.43) 05/17/24 18:59 RBC 5.42 10^6/uL (3.85-5.65) 05/17/24 18:59 Hgb 14.90 g/dL (11.27-16.99) 05/17/24 18:59 Hct 48.3 % (37-53) 05/17/24 18:59 MCV 89.1 fl (82-101) 05/17/24 18:59 MCH 27.5 pg (27-33) 05/17/24 18:59 MCHC 30.8 g/dL (30-55) 05/17/24 18:59 RDW 13.8 % (12.1-15.1) 05/17/24 18:59 Plt Count 207 10^3/cmm (157-399) 05/17/24 18:59 MPV 8.7 fL (7.4-10.4) 05/17/24 18:59 Neut % (Auto) 54.0 % 05/17/24 18:59 Lymph % (Auto) 34.1 % 05/17/24 18:59 Assumption % (Auto) 10.4 % 05/17/24 18:59 Eos % (Auto) 1.0 % 05/17/24 18:59 Baso % (Auto) 0.4 % 05/17/24 18:59 Neut # (Auto) 4.22 10^3/uL (1.8-7.7) 05/17/24 18:59 Lymph # (Auto) 2.7 10^3/uL (0.8-4.8) 05/17/24 18:59 Assumption # (Auto) 0.8 10^3/uL (0.2-0.9) 05/17/24 18:59 Eos # (Auto) 0.1 10^3/uL (0.0-0.8) 05/17/24 18:59 Baso # (Auto) 0.0 10^3/uL (0.0-0.1) 05/17/24 18:59 Nucleated RBC % (auto) 0 % 05/17/24 18: Nucleated RBCs # 0.0 /100WBC 05/17/24 18:59 Sodium 135 mmol/L (136-145) L 05/17/24 18:59 Potassium 4.1 mmol/L (3.5-5.1) 05/17/24 18:59 Chloride 101 mmol/L (98-107) 05/17/24 18:59 Carbon Dioxide 23 mmol/L (22-29) 05/17/24 18:59 Anion Gap 15.1 (5-19) 05/17/24 18:59 BUN 14 mg/dL (6-20) 05/17/24 18:59 Creatinine 0.8 mg/dL (0.7-1.2) 05/17/24 18:59 GFR Calculation 105.0 mL/min (90-130) 05/17/24 18:59 Glucose 83 mg/dL (65-115) 05/17/24 18:59 Calculated Osmolality 280 mOsm/kg (285-295) L 05/17/24 18:59 Calcium 8.8 mg/dL (8.5-10.5) 05/17/24 18:59 Total Bilirubin 0.4 mg/dL (0.15-1.2) 05/17/24 18:59 AST 70 U/L (0-40) H 05/17/24 18:59 ALT 77 U/L (0-41) H 05/17/24 18:59 Alkaline Phosphatase 93 U/L (40-130) 05/17/24 18:59 Total Protein 7.9 g/dL (6.6-8.7) 05/17/24 18:59 Albumin 4.0 g/dL (3.5-5.2) 05/17/24 18:59 Globulin 3.9 g/dL (1.3-4.6) 05/17/24 18:59 TSH 0.56 uIU/mL (0.27-4.20) 05/17/24 18:59 Salicylates < 0.3 mg/dL (3-10) L 05/17/24 18:59 Acetaminophen < 5.0 ug/mL (10-30) L 05/17/24 18:59 Ethyl Alcohol < 10 mg/dL (0-10) 05/17/24 18:59 No radiology studies performed this visit Discharge Plan Discharge Patient Disposition: Admitted As Inpatient Clinical Impression: Paranoia, Schizoaffective disorder, Delusions Condition: Stable Coding Level of Care Code ED Emergency Dispatch Operator for Cheng Torrez
[2024-05-17 19:11] LABS: Basophils % 0.4 %; Eosinophils # 0.1 10^3/uL (0.0-0.8); Hematocrit 48.3 % (37-53); Lymphocytes # 2.7 10^3/uL (0.8-4.8); Lymphocytes % 34.1 %; Mean Corpuscular HGB Conc 30.8 g/dL (30-55); Mean Corpuscular Hemoglobin 27.5 pg (27-33); Mean Corpuscular Volume 89.1 fl (82-101); Mean Platelet Volume 8.7 fL (7.4-10.4); Monocytes # 0.8 10^3/uL (0.2-0.9); Monocytes % 10.4 %; Neutrophils # 4.22 10^3/uL (1.8-7.7); Nucleated Red Blood Cells % 0 %; Platelet Count 207 10^3/cmm (157-399); Red Blood Count 5.42 10^6/uL (3.85-5.65); Red Cell Distribution Width 13.8 % (12.1-15.1); White Blood Count 7.81 10^3/uL (3.29-11.43)
[2024-05-17] MEDS: LORazepam 2 mg/mL INJ 1 mL IM (19:13)
[2024-05-17] MEDS: ziprasidone 20 mg/mL SDV IM (19:13)
[2024-05-17] MEDS: water for injection-sterile 10 ML 999 ML (19:14)
[2024-05-17 19:23] VITALS: RESP 21; O2SAT 99
[2024-05-17 19:33] LABS: Alanine Aminotransferase 77 U/L (0-41); Alkaline Phosphatase 93 U/L (40-130); Aspartate Amino Transferase 70 U/L (0-40); Blood Urea Nitrogen 14 mg/dL (6-20); Calcium 8.8 mg/dL (8.5-10.5); Carbon Dioxide 23 mmol/L (22-29); Chloride 101 mmol/L (98-107); Creatinine Clr Calc Pharmacy 109.8833; Globulin 3.9 g/dL (1.3-4.6); Glucose 83 mg/dL (65-115); Osmolality Calculated 280 mOsm/kg (285-295); Sodium 135 mmol/L (136-145); Total Bilirubin 0.4 mg/dL (0.15-1.2); Total Protein 7.9 g/dL (6.6-8.7)
[2024-05-17 19:34] LABS: Acetaminophen < 5.0 ug/mL (10-30); Alcohol Level < 10 mg/dL (0-10); Anion Gap 15.1 (5-19); Potassium 4.1 mmol/L (3.5-5.1); Salicylate < 0.3 mg/dL (3-10)
[2024-05-17 19:38] LABS: Thyroid Stimulating Hormone 0.56 uIU/mL (0.27-4.20)
--- NOTE | 2024-05-17 19:50 | PC.NURSE ---
96 Hour Hold Patient resting upon entering room. Once awake, education provided to patient regarding being placed on a 96 hour hold. When asked if patient had been placed on a hold before, patient stated yes. Rights read to patient and copy of rights left at bedside. Patient verbalized understanding, stated no further questions.
[2024-05-17 23:01] VITALS: BP 148/92; PULSE 86; O2SAT 99
[2024-05-18 04:00] VITALS: BP 135/77; PULSE 60; RESP 18; TEMP 36.6; O2SAT 96
== END 2024-05-18 08:38 | disposition admitted as inpatient to this hospital (09) ==
PROVIDERS: Emergency Provider Emergency Medicine
DX: F25.9 Schizoaffective disorder, unspecified (principal); F22 Delusional disorders; F17.290 Nicotine dependence, other tobacco product, uncomplicated
CPT/HCPCS: 36415; 80053; 80307; 84443; 85025; 93005; 96372; 99285; J2060; J3486

== ENCOUNTER 2024-05-26 15:09 | Inpatient (IN) | payer MEDICAID, SELFPAY ==
[2024-05-26 15:10] VITALS: BP 175/115; PULSE 99; RESP 18; O2SAT 98; BMI 25.0
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
[2024-05-26 15:52] LABS: Basophils % 0.3 %; Eosinophils # 0.1 10^3/uL (0.0-0.8); Eosinophils % 0.5 %; Hematocrit 47.1 % (37-53); Lymphocytes # 3.4 10^3/uL (0.8-4.8); Lymphocytes % 25.9 %; Mean Corpuscular HGB Conc 31.4 g/dL (30-55); Mean Corpuscular Hemoglobin 27.4 pg (27-33); Mean Corpuscular Volume 87.1 fl (82-101); Mean Platelet Volume 8.3 fL (7.4-10.4); Monocytes # 1.1 10^3/uL (0.2-0.9); Monocytes % 8.5 %; Neutrophils # 8.38 10^3/uL (1.8-7.7); Neutrophils % 64.5 %; Nucleated Red Blood Cells % 0 %; Platelet Count 290 10^3/cmm (157-399); Red Blood Count 5.41 10^6/uL (3.85-5.65); Red Cell Distribution Width 13.8 % (12.1-15.1); White Blood Count 13.01 10^3/uL (3.29-11.43)
--- NOTE | 2024-05-26 15:57 | PC.NURSE ---
96 hr rights reviewed with patient @2514 with assistance of [facility] regulatory compliance officer Robin Ortiz and Ty. All education reviewed with patient at this time. No verbalized needs or concerns reported to H at this time. Pt copy left with patient at this time. No further needs.
[2024-05-26 16:11] LABS: Alanine Aminotransferase 72 U/L (0-41); Albumin Level 4.2 g/dL (3.5-5.2); Alkaline Phosphatase 96 U/L (40-130); Aspartate Amino Transferase 65 U/L (0-40); Blood Urea Nitrogen 21 mg/dL (6-20); Calcium 8.9 mg/dL (8.5-10.5); Carbon Dioxide 21 mmol/L (22-29); Chloride 104 mmol/L (98-107); Globulin 3.6 g/dL (1.3-4.6); Glomerular Filtration Rate 122.5 mL/min (90-130); Glucose 86 mg/dL (65-115); Osmolality Calculated 288 mOsm/kg (285-295); Sodium 138 mmol/L (136-145); Total Bilirubin 0.5 mg/dL (0.15-1.2); Total Protein 7.8 g/dL (6.6-8.7)
[2024-05-26 16:12] VITALS: BP 159/88; PULSE 99; O2SAT 97
[2024-05-26 16:16] LABS: Acetaminophen < 5.0 ug/mL (10-30); Alcohol Level < 10 mg/dL (0-10); Salicylate < 0.3 mg/dL (3-10)
[2024-05-26 16:17] LABS: Anion Gap 17.1 (5-19); Potassium 4.1 mmol/L (3.5-5.1)
[2024-05-26] MEDS: haloperidol inj 5 mg/mL INJ 1 mL IM (18:12)
[2024-05-26] MEDS: LORazepam 2 mg/mL INJ 1 mL IM (18:12)
[2024-05-26] MEDS: diphenhydrAMINE 50 mg/mL SDV 1mL IM (18:12)
--- NOTE | 2024-05-26 18:46 | PC.NURSE ---
At approximately 1645, pt arrived to the unit and was immediately agitated about arriving to the unit and about his 96 hr hold that had been placed. The charge nurse and BRAZING MACHINE OPERATOR HELPER encouraged the pt to let the staff obtain vital signs and to have him sign his admission paperwork, the pt continued to refuse. The pt was very fixated on the 96hr hold, even while staff attempted to educate the pt on how the hold worked. The pt continued to refuse vital signs, paperwork, and skin assessment/changing out. Education and encouraging went on for approximately an hour before security intervened to support the staff and encourage the pt to finish his admission and calm down. The pt continued to become agitated and worked up and a code ten was called. The manager house and additional staff from ER and ICU come down to assist. The pt backed into the corner of the hallway and continued to become aggressive. The security chief museum went hands on with support from the staff and lowered the pt to the ground while this nurse and the charge nurse obtained the restraint bed to bring to the pt. The staff got the pt into the restraint bed with no issue at approximately 1810. At approximately 1812 this nurse and another nurse administered a B52. This nurse administered 50mg Benadryl into the R deltoid and another nurse administered 5mg Haldol and 2mg Ativan into the L deltoid. The pt tolerated the injections well. The staff rolled the pt to the restrain room while still in the restraint bed and vital signs were taken and are as follows BP: 154/77 P:96 RR:18 and O2:95% on RA. The pt was allowed one limb out of the restraint and eventually after the pt calmed down and agreed to be compliant, all limbs were released. The pt is now laying in bed covered up in a blanket. Dr. Taylor, and manager trading notified.
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
--- NOTE | 2024-05-26 19:57 | PC.NURSE ---
vs not collected per charge resp 18
[2024-05-27 06:00] VITALS: BP 134/63; PULSE 70; RESP 18; TEMP 36.9; O2SAT 99
[2024-05-27] MEDS: nicotine 4 mg lozenge MUCOUS MEM ×6 (08:11→21:12)
[2024-05-27] MEDS: risperiDONE 1 mg Tablet PO ×2 (08:12→21:12)
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
[2024-05-27 14:00] VITALS: BP 116/69; PULSE 89; RESP 18; TEMP 36.6; O2SAT 97
[2024-05-27 20:00] VITALS: BP 104/61; PULSE 83; RESP 18; TEMP 36.9; O2SAT 97
[2024-05-27] MEDS: trazodone 50 mg Tablet 100 MG PO (21:12)
[2024-05-28 06:00] VITALS: BP 100/57; PULSE 87; RESP 17; TEMP 36.8; O2SAT 97
[2024-05-28] MEDS: nicotine 4 mg lozenge MUCOUS MEM ×6 (07:55→21:41)
[2024-05-28] MEDS: risperiDONE 1 mg Tablet PO ×2 (07:55→21:41)
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
[2024-05-28 14:00] VITALS: BP 133/82; PULSE 94; RESP 17; TEMP 37.2; O2SAT 100
[2024-05-28 19:49] VITALS: BP 135/82; PULSE 82; RESP 17; TEMP 37.1; O2SAT 98
[2024-05-28 21:15] LABS: Amphetamines Screen Urine Negative (Negative); Barbiturates Screen Urine Negative (Negative); Benzodiazepines Screen Urine Negative (Negative); Cocaine Screen Urine Negative (Negative); Opiate Screen Urine Negative (Negative); PCP Screen Urine Negative (Negative); THC Screen Urine Positive (Negative)
[2024-05-28] MEDS: trazodone 50 mg Tablet 100 MG PO (21:41)
[2024-05-29 06:00] VITALS: BP 124/80; PULSE 87; RESP 18; TEMP 36.6; O2SAT 98
[2024-05-29] MEDS: nicotine 4 mg lozenge MUCOUS MEM ×8 (06:31→21:33)
[2024-05-29] MEDS: ARIPiprazole 10 mg Tablet PO (08:19)
[2024-05-29] MEDS: risperiDONE 1 mg Tablet PO ×2 (08:19→21:33)
--- NOTE | 2024-05-29 09:55 | PC.NURSE ---
SI/HI as well. Pt is reporting her anxiety and depression a 09/11. She does not recall when her last BM was. When talking with pt she was slightly confused as to if she had went home and come back, but once I reminded her she had been on this unit and went upstairs for surgery and back to this unit she remembered. Stated she was a bit confused about that. No additional concerns at this time.
--- NOTE | 2024-05-29 09:57 | PC.NURSE ---
Pt resting in bed with eyes closed occasionally. Reports no pain at this time. He is rating his anxiety and depression 0/10. Reports no SI/HI. Pt is stating that his sleep was poor last night. BM yesterday. He came up for a nicotine lozenge. He cont to have rapid speech.
[2024-05-29 14:00] VITALS: BP 142/90; PULSE 94; RESP 18; TEMP 36.4; O2SAT 97
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
[2024-05-29 20:28] VITALS: BP 138/88; PULSE 81; RESP 17; TEMP 36.7; O2SAT 99
[2024-05-29] MEDS: trazodone 50 mg Tablet 100 MG PO (21:32)
[2024-05-30] MEDS: nicotine 4 mg lozenge MUCOUS MEM ×8 (04:16→21:35)
[2024-05-30 06:00] VITALS: BP 125/74; PULSE 82; RESP 16; TEMP 36.6; O2SAT 97
--- NOTE | 2024-05-30 09:08 | PC.NURSE ---
Pt resting in bed with eyes closed. Denies SI/HI and also denies anxiety and depression. States that he is not having any pain. He is getting a PRN colace for constipation. States that he slept really well. He cont to have rapid speech and very animated. No additional concerns at this time. States that he just wants to rest a while longer.
[2024-05-30] MEDS: risperiDONE 1 mg Tablet PO ×2 (09:13→20:15)
[2024-05-30] MEDS: ARIPiprazole 10 mg Tablet PO (09:13)
[2024-05-30] MEDS: docusate sodium 100 mg Capsule PO (09:13)
--- NOTE | 2024-05-30 13:56 | PC.NURSE ---
PT AT NURSES STATION, PULLED OFF RIGHT TOE NAIL. HELD BLACK TOENAIL TO WINDOW AND STATED LOOK I PULLED MY TOE NAIL OFF FINALLY. PT THEN LAUGHED. RN TO ASSESS RIGHT TOE NAIL. NO BLEEDING OBSERVED. ORDER RECEIVED BY DR. DAWN FOR TRIPLE ANTIBIOTIC OINTMENT TO RIGHT TOE NAIL BED NEEDED. BAND-AID APPLIED FOR COMFORT.
[2024-05-30 14:00] VITALS: BP 119/84; PULSE 88; RESP 18; TEMP 37.3; O2SAT 97
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
[2024-05-30] MEDS: trazodone 50 mg Tablet PO (20:15)
[2024-05-30] MEDS: trazodone 50 mg Tablet 100 MG PO (20:15)
[2024-05-30] MEDS: hyDROXYzine 25 mg Capsule 50 MG PO (20:15)
[2024-05-30 21:33] VITALS: BP 125/68; PULSE 84; RESP 17; TEMP 37.3; O2SAT 97
[2024-05-31] MEDS: nicotine 4 mg lozenge MUCOUS MEM ×7 (01:03→17:57)
[2024-05-31 06:00] VITALS: BP 126/83; PULSE 74; RESP 17; TEMP 37; O2SAT 97
[2024-05-31] MEDS: acetaminophen 325 mg Tablet 650 MG PO (07:53)
[2024-05-31] MEDS: risperiDONE 1 mg Tablet PO ×2 (08:01→20:39)
[2024-05-31] MEDS: ARIPiprazole 10 mg Tablet PO (08:01)
[2024-05-31] MEDS: nicotine 21 mg Patch 1 PATCH TRANSDERMA (08:05)
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
[2024-05-31] MEDS: OLANZapine 5 mg ODT PO (12:25)
[2024-05-31] MEDS: haloperidol 5 mg Tablet PO (12:51)
[2024-05-31 14:00] VITALS: BP 144/90; PULSE 116; RESP 16; TEMP 36.8; O2SAT 98
--- NOTE | 2024-05-31 18:52 | PC.NURSE ---
niru patch fell off during shower, about 0900 this morning.
[2024-05-31] MEDS: ARIPiprazole 10 mg Tablet 5 MG PO (20:38)
[2024-05-31] MEDS: trazodone 50 mg Tablet 100 MG PO (20:39)
[2024-05-31] MEDS: trazodone 50 mg Tablet PO (20:39)
[2024-06-01] MEDS: ARIPiprazole 10 mg Tablet 15 MG PO (07:42)
[2024-06-01] MEDS: nicotine 4 mg lozenge MUCOUS MEM ×6 (07:42→19:54)
[2024-06-01] MEDS: risperiDONE 1 mg Tablet PO ×2 (07:42→20:40)
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
[2024-06-01 14:00] VITALS: BP 126/83; PULSE 92; RESP 18; TEMP 37; O2SAT 98
[2024-06-01 20:13] VITALS: BP 133/78; PULSE 102; RESP 18; O2SAT 96
[2024-06-01] MEDS: trazodone 50 mg Tablet 100 MG PO (20:40)
[2024-06-01] MEDS: trazodone 50 mg Tablet PO ×2 (20:40→23:19)
[2024-06-02] MEDS: nicotine 4 mg lozenge MUCOUS MEM ×8 (04:20→19:33)
[2024-06-02 06:00] VITALS: RESP 16
--- NOTE | 2024-06-02 06:42 | PC.NURSE ---
Eduardo didn't want woke up this morning for vitals. Charge nurse was notified.
[2024-06-02] MEDS: risperiDONE 1 mg Tablet PO ×2 (07:38→20:28)
[2024-06-02] MEDS: ARIPiprazole 10 mg Tablet 15 MG PO (07:38)
[2024-06-02] MEDS: acetaminophen 325 mg Tablet 650 MG PO (09:12)
[2024-06-02 14:00] VITALS: BP 125/78; PULSE 98; RESP 18; TEMP 37.1; O2SAT 98
[2024-06-02] MEDS: ARIPiprazole Maintena 400 MG IM (17:07)
--- NOTE | 2024-06-02 17:10 | PC.NURSE ---
Munir maintena 400mg injected into right deltoid muscle with no issue. Lot [id number] EXP:October 2026
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
[2024-06-02] MEDS: trazodone 50 mg Tablet PO (20:28)
[2024-06-02] MEDS: trazodone 50 mg Tablet 100 MG PO (20:28)
[2024-06-02 20:30] VITALS: BP 151/84; PULSE 93; RESP 18; TEMP 36.4; O2SAT 98
[2024-06-02] MEDS: OLANZapine 5 mg ODT PO (20:30)
[2024-06-03 06:00] VITALS: BP 131/93; PULSE 87; RESP 18; TEMP 36.6
[2024-06-03] MEDS: nicotine 4 mg lozenge MUCOUS MEM ×8 (06:10→23:23)
[2024-06-03] MEDS: ARIPiprazole 10 mg Tablet 15 MG PO (08:17)
[2024-06-03] MEDS: risperiDONE 1 mg Tablet PO ×2 (08:18→20:41)
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
[2024-06-03 14:00] VITALS: BP 116/75; PULSE 101; RESP 18; TEMP 36.8; O2SAT 95
[2024-06-03] MEDS: trazodone 50 mg Tablet PO (20:04)
[2024-06-03] MEDS: trazodone 50 mg Tablet 100 MG PO (20:04)
[2024-06-03 20:05] VITALS: BP 134/88; PULSE 86; RESP 17; TEMP 37.2; O2SAT 98
[2024-06-04] MEDS: nicotine 4 mg lozenge MUCOUS MEM ×8 (02:36→20:04)
[2024-06-04 06:00] VITALS: BP 115/60; PULSE 79; RESP 17; TEMP 36.5; O2SAT 98
[2024-06-04] MEDS: risperiDONE 1 mg Tablet PO ×2 (08:04→20:20)
[2024-06-04] MEDS: ARIPiprazole 10 mg Tablet 20 MG PO (08:04)
[2024-06-04] MEDS: nicotine 21 mg Patch 1 PATCH TRANSDERMA (11:55)
[2024-06-04 14:00] VITALS: RESP 17
--- NOTE | 2024-06-04 18:19 | PC.NURSE ---
DUE TO SEVERE WEATHER, VITALS WERE NOT OBTAINED OTHER THAN RESPIRATIONS WERE OBTAINED AT 17. CHARGE NURSE NOTIFIED.
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
[2024-06-04] MEDS: simethicone 80 mg Chew PO (19:44)
[2024-06-04] MEDS: trazodone 50 mg Tablet 100 MG PO (20:19)
[2024-06-04] MEDS: trazodone 50 mg Tablet PO (20:20)
[2024-06-04 20:52] VITALS: BP 134/79; PULSE 80; RESP 18; TEMP 36.7; O2SAT 97
[2024-06-05 06:00] VITALS: BP 126/75; PULSE 98; RESP 18; TEMP 37; O2SAT 97
[2024-06-05] MEDS: nicotine 4 mg lozenge MUCOUS MEM ×7 (06:31→19:52)
[2024-06-05] MEDS: risperiDONE 1 mg Tablet PO ×2 (08:37→20:49)
[2024-06-05] MEDS: ARIPiprazole 10 mg Tablet 20 MG PO (08:38)
[2024-06-05 14:00] VITALS: BP 123/81; PULSE 105; RESP 17; O2SAT 96
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
[2024-06-05 19:59] VITALS: BP 123/68; PULSE 86; RESP 16; TEMP 36.6; O2SAT 95
[2024-06-05] MEDS: trazodone 50 mg Tablet 100 MG PO (20:49)
[2024-06-06] MEDS: nicotine 4 mg lozenge MUCOUS MEM ×8 (04:08→21:54)
[2024-06-06 06:00] VITALS: BP 128/75; PULSE 79; RESP 16; O2SAT 96
[2024-06-06] MEDS: ARIPiprazole 10 mg Tablet 20 MG PO (08:15)
[2024-06-06] MEDS: risperiDONE 1 mg Tablet PO ×2 (08:15→21:55)
[2024-06-06] MEDS: docusate sodium 100 mg Capsule PO (10:19)
--- NOTE | 2024-06-06 10:38 | PC.NURSE ---
States that he is not sleeping well. He wakes up hot and all sweaty. States that he had a bm this morning, but it was small and hard. Offered him a colace and he agreed to that. He denies SI/HI and also anxiety and depression. Denies pain. Pt is doing well, he just is anxious to discharge.
[2024-06-06 14:00] VITALS: BP 118/77; PULSE 89; RESP 18; TEMP 37; O2SAT 98
--- NOTE | 2024-06-06 15:29 | PC.NURSE ---
New orders received from Dr. Taylor, pt to receive double portions with all meals.
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
[2024-06-06] MEDS: OLANZapine 5 mg ODT PO (19:24)
[2024-06-06 20:23] VITALS: BP 130/82; PULSE 103; RESP 18; O2SAT 97
[2024-06-06] MEDS: trazodone 50 mg Tablet 100 MG PO (21:54)
[2024-06-07 06:00] VITALS: BP 106/59; PULSE 77; RESP 16; O2SAT 95
[2024-06-07] MEDS: nicotine 4 mg lozenge MUCOUS MEM ×7 (06:38→21:34)
[2024-06-07] MEDS: risperiDONE 1 mg Tablet PO ×2 (08:17→21:34)
[2024-06-07] MEDS: ARIPiprazole 10 mg Tablet 20 MG PO (08:17)
[2024-06-07] MEDS: docusate sodium 100 mg Capsule PO (10:43)
[2024-06-07] MEDS: OLANZapine 5 mg ODT PO ×2 (10:43→21:34)
--- NOTE | 2024-06-07 10:50 | PC.NURSE ---
Pt states that he slept better, but still having night sweats. He denies anxiety and depression. Denies SI/HI. Denies pain at this time. States that he did have a bm today, but it was still difficult and would like to do a PRN colace. Still discusses his d/c options.
[2024-06-07 14:00] VITALS: BP 122/73; PULSE 83; RESP 16; TEMP 37.4; O2SAT 98
--- NOTE | 2024-06-07 16:49 | PC.NURSE ---
Pt had his cousin Moody Cox call and give approval to go live with him. Moody gave his address as [address] [place] and phone # of [phone]
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
[2024-06-07] MEDS: trazodone 50 mg Tablet 100 MG PO (21:33)
[2024-06-07] MEDS: sennosides 8.6 mg Tablet 17.2 MG PO (21:33)
[2024-06-07 22:00] VITALS: BP 154/83; PULSE 83; RESP 18; O2SAT 98
[2024-06-08 06:00] VITALS: RESP 16
[2024-06-08] MEDS: nicotine 4 mg lozenge MUCOUS MEM ×8 (06:51→19:57)
[2024-06-08] MEDS: ARIPiprazole 10 mg Tablet 20 MG PO (07:58)
[2024-06-08] MEDS: risperiDONE 1 mg Tablet PO ×2 (07:58→20:04)
[2024-06-08] MEDS: docusate sodium 100 mg Capsule PO (08:00)
[2024-06-08] MEDS: OLANZapine 5 mg ODT PO (09:58)
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
[2024-06-08 14:00] VITALS: BP 131/82; PULSE 85; RESP 16; O2SAT 97
[2024-06-08] MEDS: magnesium hydroxide 30 mL UDC PO (14:01)
[2024-06-08] MEDS: haloperidol 5 mg Tablet PO (15:57)
--- NOTE | 2024-06-08 15:58 | PC.NURSE ---
Anxiety Patient c/o anxiety 09/11. patient pacing the hallway. patient unable to voice the reasoning. Administered haldol 5mg PO
[2024-06-08] MEDS: simethicone 80 mg Chew PO (16:24)
[2024-06-08] MEDS: trazodone 50 mg Tablet 100 MG PO (20:04)
[2024-06-08] MEDS: sennosides 8.6 mg Tablet 17.2 MG PO (20:04)
[2024-06-08] MEDS: trazodone 50 mg Tablet PO (20:04)
[2024-06-08 22:00] VITALS: BP 149/95; PULSE 92; RESP 18; TEMP 36.7; O2SAT 97
[2024-06-09 06:00] VITALS: RESP 16
[2024-06-09] MEDS: nicotine 4 mg lozenge MUCOUS MEM ×7 (07:23→19:37)
[2024-06-09] MEDS: magnesium hydroxide 30 mL UDC PO (08:07)
[2024-06-09] MEDS: ARIPiprazole 10 mg Tablet 20 MG PO (08:08)
[2024-06-09] MEDS: risperiDONE 1 mg Tablet PO (08:08)
--- NOTE | 2024-06-09 10:18 | PC.NURSE ---
Pt states that he slept well last night. He denies anxiety and depression. Denies SI/HI as well as hallucinations. No pain is noted at this time. States that he had a bm this am and isn't feeling constipated at this time.
[2024-06-09 14:00] VITALS: BP 131/90; PULSE 97; RESP 17; O2SAT 98
[2024-06-09] MEDS: OLANZapine 5 mg ODT PO ×2 (14:36→19:36)
[2024-06-09 15:39] VITALS: BP 131/90; PULSE 97; RESP 17; O2SAT 98
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
--- NOTE | 2024-06-09 18:48 | PC.NURSE ---
CONTACTED [facility] ABOUT TRANSPORTATION RIDE. CS ASSOCIATE STATED THEY ARE STILL WORKING ON THE RIDE TO GET PT TO HIS SISTERS HOUSE AND THAT IT HAS BEEN ESCALATED UP TO THE [employer]IGH UPS TO GET THE RIDE OUT [place]. PT UPDATED ON INFORMATION. PRACTICE OFFICE ASSOCIATE RN UPDATED ON [facility] RIDE AND TO CONTACT THEM AGAIN IF SHE DOES NOT HEAR FROM THEM IN AN HOUR TO HOUR AND A HALF.
--- NOTE | 2024-06-09 19:55 | PC.NURSE ---
Reyna called the transportation number left from previous day shift nurse. Operated stated someone would call back in 30 min. They do not have any available drivers at this time. Pt. is wanting to walk home. Signee informed pt. that was against protocol.
[2024-06-09 20:17] VITALS: BP 131/83; PULSE 97; RESP 18; TEMP 37; O2SAT 95
--- NOTE | 2024-06-10 08:58 | W.CSC.QMHPCN ---
[facility] Contact Note [facility] [[email or web address]] Contact Note Client presented to the Crisis Center for basic needs services. Mr. Ochoa is appropriately dressed for the weather. Speech was rapid with accelerated motor activity. Client would jump from one subject to another, but was overall in a pleasant mood. Client denies any SI/HI with delusional thought content not appearing to be present. Client reports being discharged from the [facility] the prior night with the plan to reside with his sister in [place]. However, client gave conflicting reports on what had happened to this plan as he reportedly [facility]. Client does endorse continuing his medication as prescribed. Eduardo was agreeable to being provided transportation to his Sisters House. Client was provided transportation with no return plan established.
--- NOTE | 2024-06-10 09:39 | CSC.DSPLAN ---
CSC Discharge Plan Current SI: None Current HI: Denies any homicidal thoughts, plans, intentions, or time frames Safety Plan Completed: Yes Patient agrees with discharge safety plan: Yes [place] the [place] [facility] [place] Were medication services provided during today's visit?: No Client Presentation upon Discharge: The client was pleasant upon discharge. Current Progress Towards Recovery and Well-Being: Client obtained basic needs and transportation to his Sister's house. Continued Treatment Barriers: RACHEL, housing, limited income, transportation, mental health Treatment Goals Achieved During Program Participation: Basic needs assistance Services referred from Center: None Care Provided-Services the individual received: Crisis Services CSC Outcome: Crisis Stabilized CSC Discharge Disposition/Location: No Fixed Place/Residence Care Coordination Agencies Referred to:: None Client Follow up Plan to Referred agencies:: None
== END 2024-06-09 20:39 | disposition home or self-care (01) | DRG 885 ==
LOC: ER 15:20 → NP 15:53
PROVIDERS: Admitting Provider Psychiatry & Neurology Psychiatry; Emergency Provider Emergency Medicine; Visit Provider Psychiatry & Neurology Psychiatry
DX: F25.0 Schizoaffective disorder, bipolar type (principal); Z59.00 Homelessness unspecified; F12.20 Cannabis dependence, uncomplicated; F15.90 Other stimulant use, unspecified, uncomplicated; F41.9 Anxiety disorder, unspecified; F17.210 Nicotine dependence, cigarettes, uncomplicated; F17.220 Nicotine dependence, chewing tobacco, uncomplicated
CPT/HCPCS: 36415; 80053; 80306; 80307; 85025; 96372; 97150; 97165; 99285; J1200; J1630; J2060; J9999

== ENCOUNTER 2025-01-01 03:12 | Emergency (ER) | payer MEDICAID, SELFPAY ==
[2025-01-01 03:23] VITALS: BP 168/101; PULSE 97; RESP 20; TEMP 36.6; O2SAT 98; BMI 29.9
[2025-01-01 03:29] VITALS: BP 168/101; PULSE 97; RESP 20; TEMP 36.6; O2SAT 98
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
== END 2025-01-01 03:51 | disposition home or self-care (01) ==
PROVIDERS: Emergency Provider Student in an Organized Health Care Education/Training Program
DX: F41.9 Anxiety disorder, unspecified (principal); F17.210 Nicotine dependence, cigarettes, uncomplicated; F17.290 Nicotine dependence, other tobacco product, uncomplicated
CPT/HCPCS: 99283; J9999

== ENCOUNTER → 2025-01-05 10:59 | Outpatient (BNVA) | payer OTHER, SELFPAY | PROVIDERS: Visit Provider Nurse Practitioner | DX: F25.1 Schizoaffective disorder, depressive type (principal); F12.20 Cannabis dependence, uncomplicated; Z79.899 Other long term (current) drug therapy | CPT/HCPCS: 80061; 83036 ==

== ENCOUNTER 2025-01-31 12:44 | Inpatient (IN) | payer MEDICAID, SELFPAY ==
[2025-01-06 11:10] VITALS: BP 160/108; BMI 29.8
[2025-01-31 12:45] VITALS: BP 152/103; PULSE 109; RESP 20; TEMP 36.4; O2SAT 95
--- NOTE | 2025-01-31 12:57 | ED.C_ITS ---
HPI - Psych 2 General: Chief Complaint: Psychiatric Symptoms Stated Complaint: 96 HOUR HOLD Time Seen by Provider: 01/31/25 12:44 Source: patient and police Limitations: no limitations History of Present Illness: 44-year-old male is here with police und er 96-hour hold. Patient has had recent hallucinations and made suicidal statements. Patient denies any currently. Patient does appear anxious. Denies any drug overdose Related Data Home Medications ?Medication ?Instructions ?Recorded ?Confirmed olanzapine 5 mg disintegrating 5 mg PO DAILY 01/31/25 01/31/25 tablet Allergies Allergy/AdvReac Type Severity Reaction Status Date / Time aspirin Allergy Unknown Verified 01/05/25 12:18 Penicillins Allergy Unknown Verified 01/05/25 12:18 PFSH ED 2 PFSH: Medical History (Updated 01/31/25 @ 15:04 by Rodney Summers MD) Psychiatric care Family History Other Stomach cancer Sudden cardiac TIA (transient ischemic attack) Social History (Updated 01/05/25 @ 12:46 by Harika Kiser RN) Smoking and tobacco/nicotine status: current every day tobacco/nicotine user cigarettes Years cigarettes smoked: 5 [ Other cigarette details: 2-3 cigarettes a day] and e-cigarettes E-Cigarette Details: vaporizer device and with nicotine E-cig/vape details: Has to get a refill every couple months Quit status (tobacco/nicotine): not considering quitting Second hand smoke exposure: No Alcohol intake: current Alcohol intake frequency: few times a week Alcohol type: beer and hard liquor Substance/Drug Use: current Substance/Drug use frequency: few times a week Adopted: No Caregiver/support person: No Lives independently: Yes Household members: none Housing: Homeless Marital status: Marital status details: Thinks he might be , but is not sure Number of children: 3 Highest education level completed: GED or Equivalent service: No Current occupational status: disabled Current occupational exposures/hazards: No Pets and animals: No Leisure activites: other Leisure activities details: Walking Sexually active: Yes Do you think of yourself as: Straight/Heterosexual Current gender identity: Male Salome/Hinduism: Episcopal Special salome needs: No Agree to transfusion: Yes Physical Exam 2 Const: COMMON NORMALS: no acute distress, patient oriented x3 and healthy appearing HENMT: COMMON NORMALS: normocephalic and atraumatic HEAD & SCALP: n ormocephalic and atraumatic Eye: COMMON NORMALS: Equal, round and reactive pupils present and EOMs intact bilaterally PUPIL: Yes Equal, round and reactive pupils present Neck/C-Spine: COMMON NORMALS: full ROM and supple Chest: COMMONS NORMALS: normal inspection of the chest and normal palpation of entire chest wall Resp: COMMON NORMALS: normal respiratory effort, No retractions, No use of accessory muscles and clear to auscultation bilaterally AUSCULTATION: clear to auscultation bilaterally Cardio: COMMON NORMALS: regular rate, regular rhythm and No murmurs present (Cardio) RATE: regular rate RHYTHM: regular rhythm GI: COMMON NORMALS: Normal to inspection, nondistended, normoactive bowel sounds present, Soft to palpation, non-tender and no masses PALPATION: Yes Soft to palpation Extremity: COMMON NORMALS: normal to inspection and full ROM Neuro: COMMON NORMALS: patient oriented x3, moves all extremities and no focal motor deficits Psych: COMMON NORMALS: mental status grossly normal, Normal thought process present and cooperative THOUGHT PROCESS: Normal thought process present Skin: COMMON NORMALS: no rashes or lesions noted and no wounds GENERAL SKIN EXAM: no rashes or lesions noted Course 2 Vital Signs: Vital signs: Vital Signs Temperature 97.5 F L 01/31/25 12:45 Pulse Rate 109 H 01/31/25 12:45 Respiratory Rate 20 H 01/31/25 12:45 Blood Pressure 152/103 01/31/25 12:45 Pulse Oximetry 95 01/31/25 12:45 [facility] - Psych Medical Decision Making Patient presents here with hallucinations along with suicidal ideations he is brought in by police under a court ordered on a 6-hour hold. He has been medically cleared labs showed no significant abnormality spoke to psychiatrist Dr. Taylor and will admit to the Neuropsych Unit. Medical Records I reviewed the patient's medical records. Lab Data I reviewed the patient's lab results. 01/31/25 13:19 01/31/25 13:19 Laboratory Results WBC 11.40 10^3/uL (3.29-11.43) 01/31/25 13:19 RBC 5.19 10^6/uL (3.85-5.65) 01/31/25 13:19 Hgb 15.10 g/dL (11.27-16.99) 01/31/25 13:19 Hct 46.1 % (37-53) 01/31/25 13:19 MCV 88.8 fl (82-101) 01/31/25 13:19 MCH 29.1 pg (27-33) 01/31/25 13:19 MCHC 32.8 g/dL (30-55) 01/31/25 13:19 RDW 13.1 % (12.1-15.1) 01/31/25 13:19 Plt Count 300 10^3/cmm (157-399) 01/31/25 13:19 MPV 8.5 fL (7.4-10.4) 01/31/25 13:19 Neut % (Auto) 62.2 % 01/31/25 13:19 Lymph % (Auto) 29.0 % 01/31/25 13:19 [place] % (Auto) 7.4 % 01/31/25 13:19 Eos % (Auto) 0.7 % 01/31/25 13:19 Baso % (Auto) 0.4 % 01/31/25 13:19 Neut # (Auto) 7.09 10^3/uL (1.8-7.7) 01/31/25 13:19 Lymph # (Auto) 3.3 10^3/uL (0.8-4.8) 01/31/25 13:19 [place] # (Auto) 0.8 10^3/uL (0.2-0.9) 01/31/25 13:19 Eos # (Auto) 0.1 10^3/uL (0.0-0.8) 01/31/25 13:19 Baso # (Auto) 0.1 10^3/uL (0.0-0.1) 01/31/25 13:19 Nucleated RBC % (auto) 0 % 01/31/25 13:19 Nucleated RBCs # 0.0 /100WBC 01/31/25 13:19 Sodium 136 mmol/L (136-145) 01/31/25 13:19 Potassium 3.7 mmol/L (3.5-5.1) 01/31/25 13:19 Chloride 100 mmol/L (98-107) 01/31/25 13:19 Carbon Dioxide 27 mmol/L (22-29) 01/31/25 13:19 Anion Gap 12.7 (5-19) 01/31/25 13:19 BUN 9 mg/dL (6-20) 01/31/25 13:19 Creatinine 0.9 mg/dL (0.7-1.2) 01/31/25 13:19 GFR Calculation 91.3 mL/min (90-130) 01/31/25 13:19 Glucose 104 mg/dL (65-115) 01/31/25 13:19 Calculated Osmolality 281 mOsm/kg (285-295) L 01/31/25 13:19 Calcium 8.9 mg/dL (8.5-10.5) 01/31/25 13:19 Total Bilirubin 0.5 mg/dL (0.15-1.2) 01/31/25 13:19 AST 60 U/L (0-40) H 01/31/25 13:19 ALT 78 U/L (0-41) H 01/31/25 13:19 Alkaline Phosphatase 106 U/L (40-130) 01/31/25 13:19 Total Protein 7.6 g/dL (6.6-8.7) 01/31/25 13:19 Albumin 4.2 g/dL (3.5-5.2) 01/31/25 13:19 Globulin 3.4 g/dL (1.3-4.6) 01/31/25 13:19 Salicylates < 0.3 mg/dL (3-10) L 01/31/25 13:19 Acetaminophen < 5.0 ug/mL (10-30) L 01/31/25 13:19 Ethyl Alcohol < 10 mg/dL (0-10) 01/31/25 13:19 No radiology studies performed this visit Discharge Plan Discharge Patient Disposition: Admitted As Inpatient Admit Provider: Jasvir Taylor Clinical Impression: Acute psychosis, Suicidal ideation Condition: Stable Coding Level of Care Code ED Senior Construction Estimator for Cheng Torrez
[2025-01-31] MEDS: LORazepam 2 mg/mL INJ 1 mL IM (13:14)
--- NOTE | 2025-01-31 13:14 | PC.PHAR ---
Pt only has 1 current medication-Olanzapine 50g odt daily 12/22/24 30ds. Previous medication for Abilify Maintena 400mg im q 28 days last fill shows 07/01/24 25ds.
[2025-01-31 13:23] LABS: Hematocrit 46.1 % (37-53); Hemoglobin 15.10 g/dL (11.27-16.99); Mean Corpuscular HGB Conc 32.8 g/dL (30-55); Mean Corpuscular Hemoglobin 29.1 pg (27-33); Mean Corpuscular Volume 88.8 fl (82-101); Nucleated Red Blood Cells % 0 %; Platelet Count 300 10^3/cmm (157-399); Red Blood Count 5.19 10^6/uL (3.85-5.65); White Blood Count 11.40 10^3/uL (3.29-11.43)
[2025-01-31 14:01] LABS: Acetaminophen < 5.0 ug/mL (10-30); Alanine Aminotransferase 78 U/L (0-41); Albumin Level 4.2 g/dL (3.5-5.2); Alcohol Level < 10 mg/dL (0-10); Alkaline Phosphatase 106 U/L (40-130); Anion Gap 12.7 (5-19); Aspartate Amino Transferase 60 U/L (0-40); Blood Urea Nitrogen 9 mg/dL (6-20); Calcium 8.9 mg/dL (8.5-10.5); Carbon Dioxide 27 mmol/L (22-29); Chloride 100 mmol/L (98-107); Globulin 3.4 g/dL (1.3-4.6); Glucose 104 mg/dL (65-115); Osmolality Calculated 281 mOsm/kg (285-295); Potassium 3.7 mmol/L (3.5-5.1); Salicylate < 0.3 mg/dL (3-10); Sodium 136 mmol/L (136-145); Total Protein 7.6 g/dL (6.6-8.7)
--- NOTE | 2025-01-31 14:43 | PC.NURSE ---
Pt was read his 96 hour hold rights with security present.
[2025-01-31 15:51] VITALS: BP 146/94; PULSE 92; RESP 17; TEMP 36.4; O2SAT 96
[2025-01-31 20:39] VITALS: BP 142/97; PULSE 77; RESP 19; TEMP 36.7; O2SAT 97
[2025-01-31 21:00] VITALS: BMI 29.5
[2025-02-01 03:48] VITALS: BP 147/93; PULSE 83; RESP 17; O2SAT 100
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
--- NOTE | 2025-02-01 07:03 | PC.NURSE ---
Eduardo is friendly, but noted to continuously make very inappropriate remarks about staff such as I need the hot chicks to come talk to me et when asked to cease, does not stop. He speaks very fast et comes back frequently with more, et asks to do things that are against the rules stating he knows he's not allow but is going to ask anyway . Other patients are approaching nursing staff et asking for assistance making him stop the comments et behaviours.
--- NOTE | 2025-02-01 09:06 | PC.NURSE ---
Pt. 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 Signee has informed pt. several times we do not have anything to do with this. Signee has called security to come and talk to pt. over this.
[2025-02-01 09:13] LABS: PCP Screen Urine Negative (Negative)
[2025-02-01 14:00] VITALS: RESP 16
[2025-02-01 21:12] VITALS: BP 123/63; PULSE 64; RESP 16; TEMP 36.5; O2SAT 96
[2025-02-02 06:00] VITALS: BP 141/91; PULSE 61; RESP 17; TEMP 36.4; O2SAT 98
[2025-02-02 13:59] VITALS: BP 152/88; PULSE 96; RESP 16; TEMP 37.2; O2SAT 97
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
[2025-02-02 20:52] VITALS: BP 111/62; PULSE 74; RESP 16; TEMP 36.7; O2SAT 95
[2025-02-03 06:00] VITALS: BP 154/72; PULSE 71; RESP 16; TEMP 36.7; O2SAT 98
[2025-02-03 14:00] VITALS: BP 147/92; PULSE 84; RESP 17; O2SAT 99
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
--- NOTE | 2025-02-03 21:39 | PC.NURSE ---
pt vs not collected resp 18
[2025-02-04 06:00] VITALS: BP 136/94; PULSE 90; RESP 17; TEMP 36.8; O2SAT 99
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
[2025-02-04 14:00] VITALS: BP 139/95; PULSE 114; RESP 17; TEMP 37.1; O2SAT 98
[2025-02-04 20:06] VITALS: BP 141/95; PULSE 106; RESP 18; TEMP 37.2; O2SAT 97
[2025-02-05 06:00] VITALS: BP 132/87; PULSE 86; RESP 18; TEMP 37; O2SAT 98
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
[2025-02-05 14:00] VITALS: BP 163/99; PULSE 84; RESP 18; O2SAT 98
[2025-02-05 20:42] VITALS: BP 144/98; PULSE 74; RESP 16; TEMP 36.4; O2SAT 98
[2025-02-06 06:00] VITALS: BP 150/95; PULSE 88; RESP 17; TEMP 37; O2SAT 96
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
[2025-02-06 14:00] VITALS: BP 153/96; PULSE 80; RESP 16; TEMP 37.1; O2SAT 98
[2025-02-06 20:25] VITALS: BP 147/79; PULSE 75; RESP 19; TEMP 36.5; O2SAT 97
[2025-02-07 06:00] VITALS: BP 133/86; PULSE 83; RESP 18; TEMP 36.7; O2SAT 96
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
[2025-02-07 14:00] VITALS: BP 145/98; PULSE 95; RESP 16; TEMP 37.1; O2SAT 98
[2025-02-07 22:00] VITALS: BP 147/111; PULSE 85; RESP 16; TEMP 36.8; O2SAT 98
[2025-02-08 06:00] VITALS: BP 129/85; PULSE 86; RESP 14; TEMP 36.9; O2SAT 97; BMI 28.2
[2025-02-08 13:42] VITALS: BP 143/98; PULSE 101; RESP 17; TEMP 37.1; O2SAT 98
--- NOTE | 2025-02-08 16:24 | PC.NURSE ---
spoke with Catarino from [facility] at [phone] Taylor for Ablilify Asimtufii 960mg 2month injectable with no refill. 

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
--- NOTE | 2025-02-08 18:33 | PC.NURSE ---
Another peer approached staff MARCELO Wilson that patient had ate his nicotine patch. Patient denies this. Educated on importance of not ingesting nicotine.
[2025-02-08 20:18] VITALS: BP 135/87; PULSE 101; RESP 18; TEMP 37.2; O2SAT 98
[2025-02-09 06:00] VITALS: BP 134/86; PULSE 83; RESP 17; TEMP 36.9; O2SAT 97
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
[2025-02-09 14:00] VITALS: BP 136/90; PULSE 87; RESP 16; TEMP 37; O2SAT 96
[2025-02-09 20:30] VITALS: BP 134/81; PULSE 81; RESP 18; TEMP 37; O2SAT 95
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
[2025-02-10 06:00] VITALS: BP 127/72; PULSE 80; RESP 18; TEMP 36.6; O2SAT 95
[2025-02-10] MEDS: NON-FORMULARY MEDICATION 1 EACH XX (13:07)
[2025-02-10 14:00] VITALS: BP 133/90; PULSE 93; RESP 17; TEMP 37.2; O2SAT 97
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
[2025-02-10 21:49] VITALS: BP 156/72; PULSE 114; RESP 18; TEMP 36.7; O2SAT 95
[2025-02-11 05:54] VITALS: BP 148/93; PULSE 77; RESP 16; TEMP 37; O2SAT 98
[2025-02-11 13:51] VITALS: BP 124/77; PULSE 76; RESP 17; TEMP 37.1; O2SAT 94
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
[2025-02-11 20:26] VITALS: BP 145/92; PULSE 92; RESP 18; TEMP 36.8; O2SAT 97
--- NOTE | 2025-02-12 06:42 | PC.NURSE ---
vs not completed pt sleeping soundly, nurse notified resp 16
[2025-02-12 14:00] VITALS: BP 140/60; PULSE 90; RESP 16; TEMP 37; O2SAT 96
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
[2025-02-12] MEDS: benzocaine 20% 7 gm 1 APPLIC MUCOUS MEM (15:59)
[2025-02-12 20:19] VITALS: BP 178/92; PULSE 87; RESP 17; TEMP 36.8; O2SAT 97
[2025-02-13 06:00] VITALS: BP 153/99; PULSE 95; RESP 18; TEMP 36.6; O2SAT 96
[2025-02-13 13:52] VITALS: BP 138/82; PULSE 88; RESP 16; TEMP 37.1; O2SAT 97
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
[2025-02-13 18:34] LABS: Hematocrit 45.2 % (37-53); Hemoglobin 14.50 g/dL (11.27-16.99); Mean Corpuscular HGB Conc 32.1 g/dL (30-55); Mean Corpuscular Hemoglobin 28.8 pg (27-33); Mean Corpuscular Volume 89.7 fl (82-101); Nucleated Red Blood Cells % 0 %; Platelet Count 261 10^3/cmm (157-399); Red Blood Count 5.04 10^6/uL (3.85-5.65); White Blood Count 11.88 10^3/uL (3.29-11.43)
[2025-02-13 19:01] LABS: Alanine Aminotransferase 129 U/L (0-41); Albumin Level 4.1 g/dL (3.5-5.2); Alkaline Phosphatase 132 U/L (40-130); Anion Gap 14.1 (5-19); Aspartate Amino Transferase 62 U/L (0-40); Blood Urea Nitrogen 19 mg/dL (6-20); Calcium 9.0 mg/dL (8.5-10.5); Carbon Dioxide 27 mmol/L (22-29); Chloride 99 mmol/L (98-107); Globulin 3.5 g/dL (1.3-4.6); Glucose 105 mg/dL (65-115); Osmolality Calculated 285 mOsm/kg (285-295); Potassium 4.1 mmol/L (3.5-5.1); Sodium 136 mmol/L (136-145); Total Protein 7.6 g/dL (6.6-8.7)
[2025-02-13 19:07] LABS: Procalcitonin 0.06 ng/mL (0-0.5)
[2025-02-13] MEDS: cetylpyridinium Lozenge 1 EACH MUCOUS MEM (19:23)
[2025-02-13 20:09] VITALS: BP 148/98; PULSE 84; RESP 17; TEMP 36.9; O2SAT 92
[2025-02-14 06:00] VITALS: BP 157/76; PULSE 88; RESP 17; TEMP 36.9; O2SAT 96
[2025-02-14] MEDS: cetylpyridinium Lozenge 1 EACH MUCOUS MEM ×5 (07:41→17:41)
--- NOTE | 2025-02-14 12:51 | PC.NURSE ---
[facility]
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
[2025-02-14 13:36] VITALS: BP 136/89; PULSE 87; RESP 18; TEMP 36.9; O2SAT 98
[2025-02-14 20:18] VITALS: BP 143/78; PULSE 91; RESP 18; TEMP 37; O2SAT 98
[2025-02-15 06:00] VITALS: BP 167/98; PULSE 86; RESP 18; TEMP 37.1; O2SAT 97
[2025-02-15 14:31] VITALS: BP 141/89; PULSE 90; RESP 18; TEMP 36.9; O2SAT 98
[2025-02-15] MEDS: cetylpyridinium Lozenge 1 EACH MUCOUS MEM ×2 (14:35→18:56)
--- NOTE | 2025-02-15 16:57 | P.NPUPN_ITS ---
Subjective NPU 2 Subjective: 44-year-old male admitted with psychosis with a history of suicidal ideation as well. The patient had reported that he was doing well with his medications. He reported adequate sleep. He had expressed excitement over potentially going to live in a sober living facility. Patient was scheduled to go to the [facility]. The patient reported no mood symptoms currently. He was more engageable and pleasant on the milieu. He reported no particular side effects with his medications. Mental Status Exam 2 MSE Comments: This is a well-nourished well-developed white male in hospital scrubs with improved grooming. He had fair eye contact. He shaved his head and his bowen. No abnormal involuntary motor movements except for mild psychomotor retardation. He was cooperative with exam and appeared in no acute distress. Speech was normal in rate and volume. Mood described as better. His affect was brighter. Thought process was linear and organized. Thought content: Patient denied suicidal or homicidal ideation, there was no clear evidence of delusional thinking. He did not appear to be responding to internal stimuli. Stressors include homelessness, possible legal issues, and interpersonal conflicts. His attention, concentration and memory appeared intact, but none were formally tested. He appeared alert and oriented x person, place and time. Insight was poor. Judgment was improving. Impulse control was improving as well. Vitals/I&O/Wt Last Vital Signs Temp 98.4 F 02/15/25 14:31 Pulse 90 02/15/25 14:31 Resp 18 02/15/25 14:31 BP 141/89 02/15/25 14:31 Pulse Ox 98 02/15/25 14:31 O2 Del Method Room Air 02/15/25 06:00 Weight last 48 hrs Weight 86.183 kg Data NPU 02/13/25 18:22 02/13/25 18:22 Micro: Microbiology 02/13/25 18:00 Group A Streptococcus Rapid Screen - Preliminary Throat Microbiology 02/13/25 18:00 Throat Group A Streptococcus Rapid Screen - Preliminary A&P Assessment and plan 1. Schizoaffective disorder: 2. Cannabis use disorder, severe, dependence: 3. Acute psychosis: Plan: This is a 44-year-old white male with a long history of addiction and mental health treatment with significant impulsivity known to [facility] through inpatient outpatient and crisis services with significant difficulty with adherence to treatment with previous diagnosis of bipolar disorder versus schizoaffective disorder versus substance-induced psychotic disorder and history of aggression, violence, anxiety and paranoia hospitalized once again with concerns for psychosis and aggression with positive UDS for cannabis. 1. Attempt to restart medications from past hospitalization. May need forced medication protocol. Patient agreed to consider restarting medication. We restarted his Abilify 10 mg p.o. daily and will likely consider long-acting injectable tomorrow. Trying to get the Abilify Asimtufii so that he will have 2 months prior to his injection needing to readministered. Ordered the medication and she would be here today for injection. Patient given Abilify Asimtufii 960 mg every 2 months injection 02/10/2025. Will need 9 days of oral coadministration. 2. Continue every 15 minute checks for safety. Will consider increasing him to 1-1 and possibly giving him his own room. Continued patient on every 15 minute checks for the time being but did give private room. 3. Encourage individual, group and milieu therapies. 4. Obtain collateral information. 5. Observe against the backdrop of the 96-hour hold. Patient placed on a 21- day hold 02/06/2025. Plan for likely discharge on 02/16/25 to sober living program known as [facility]. 6. [facility] living treatment after discharge at the highest level care to which he is willing to commit. PDMP PDMP Reviewed: Not Reviewed Involuntary Hold Information 2 Hold Status: Legal Status: 21 Day Hold Date/Time Hold Expires: 02/27/2025 Attestations NPU 2 Medical Necessity Statement*: Inpatient hospitalization is medically necessary and the clinically appropriate intervention at this time.? We will monitor/initiate medications as indicated. The patient?s likely length of stay is 1-2 days.? Coding Level of Care Code Acute Code for [facility] Fwd Diagnoses Schizoaffective disorder F25.9 Cannabis use disorder, severe, dependence F12.20 Acute psychosis F23
[2025-02-15 22:00] VITALS: RESP 16
--- NOTE | 2025-02-16 00:20 | PC.NURSE ---
pt resting soundly vs not completed nurse notified resp 16
[2025-02-16 05:04] VITALS: BP 128/79; PULSE 89; RESP 18; TEMP 37.1; O2SAT 100
[2025-02-16 10:19] VITALS: BP 128/79; PULSE 87; RESP 18; TEMP 37.1; O2SAT 100
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
== END 2025-02-16 12:11 | disposition home or self-care (01) | DRG 761 ==
LOC: ER 13:23 → NP 15:02
PROVIDERS: Student in an Organized Health Care Education/Training Program; Admitting Provider Psychiatry & Neurology Psychiatry; Emergency Provider Emergency Medicine; Visit Provider Psychiatry & Neurology Psychiatry
DX: F25.9 Schizoaffective disorder, unspecified (principal); F12.20 Cannabis dependence, uncomplicated; Z59.00 Homelessness unspecified; F17.290 Nicotine dependence, other tobacco product, uncomplicated; Z81.8 Family history of other mental and behavioral disorders; Z91.410 Personal history of adult physical and sexual abuse
CPT/HCPCS: 36415; 80053; 80306; 80307; 84145; 85025; 87081; 96372; 97150; 97165; 99285; J2060; J9999

== ENCOUNTER 2025-02-28 07:49 | Emergency (ER) | payer MEDICAID, SELFPAY ==
[2025-01-06 11:10] VITALS: BP 160/108; BMI 29.8
--- NOTE | 2025-02-28 07:54 | W.ED.DENTAL ---
HPI - Dental/Oral General: Chief complaint: Dental/Oral Stated complaint: R upper tooth pain Time Seen by Provider: 02/28/25 07:51 Source: patient Mode of arrival: ambulatory Limitations: no limitations History of Present Illness: 44-year-old male states he had right upper dental pain over the last 2 days and has noticed a small abscess. States it is painful he rates his pain a 4 out of 10 he denies any trismus denies any difficulty swallowing denies any fevers. Related Data Previous Rx's ?Medication ?Instructions ?Recorded aripiprazole 15 mg tablet 15 mg PO DAILY 30 days #30 tabs 02/16/25 cephalexin 500 mg capsule 500 mg PO TID 7 days #21 caps 02/28/25 Allergies Allergy/AdvReac Type Severity Reaction Status Date / Time aspirin Allergy Unknown Verified 01/05/25 12:18 Penicillins Allergy Unknown Verified 01/05/25 12:18 Review of Systems ENMT: Reports: dental pain PFS ED PFSH: Medical History Psychiatric care Family History Other Stomach cancer Sudden cardiac TIA (transient ischemic attack) Social History Smoking and tobacco/nicotine status: current every day tobacco/nicotine user cigarettes Years cigarettes smoked: 5 [ Other cigarette details: 2-3 cigarettes a day] and e-cigarettes E-Cigarette Details: vaporizer device and with nicotine E-cig/vape details: Has to get a refill every couple months Quit status (tobacco/nicotine): not considering quitting Second hand smoke exposure: No Alcohol intake: current Alcohol intake frequency: few times a week Alcohol type: beer and hard liquor Substance/Drug Use: current Substance/Drug use frequency: few times a week Adopted: No Caregiver/support person: No Lives independently: Yes Household members: none Housing: Homeless Marital status: Marital status details: Thinks he might be , but is not sure Number of children: 3 Highest education level completed: GED or Equivalent service: No Current occupational status: disabled Current occupational exposures/hazards: No Pets and animals: No Leisure activites: other Leisure activities details: Walking Sexually active: Yes Do you think of yourself as: Straight/Heterosexual Current gender identity: Male Salome/Scientologist: Buddhism Special salome needs: No Agree to transfusion: Yes Physical Exam Const: COMMON NORMALS: no acute distress, patient oriented x3 and healthy appearing HENMT: COMMON NORMALS: normocephalic and atraumatic HEAD & SCALP: normocephalic and atraumatic OTHER: Small abscess noted to right upper molar no trismus Eye: COMMON NORMALS: conjunctivae normal CONJUNCTIVA: Yes conjunctivae normal Neck/C-Spine: COMMON NORMALS: full ROM and supple Chest: COMMONS NORMALS: normal inspection of the chest Resp: COMMON NORMALS: normal respiratory effort Cardio: COMMON NORMALS: regular rate RATE: regular rate Extremity: COMMON NORMALS: normal to inspection and full ROM Neuro: COMMON NORMALS: patient oriented x3, moves all extremities and no focal motor deficits Psych: COMMON NORMALS: mental status grossly normal, Normal thought process present and cooperative THOUGHT PROCESS: Normal thought process present Skin: COMMON NORMALS: no rashes or lesions noted and no wounds GENERAL SKIN EXAM: no rashes or lesions noted Procedures Abscess I/D Site: other (dental right upper molar) Side (if applicable): right Technique: needle aspiration Irrigation: No Packing used?: none Course Vital Signs: Vital signs: Vital Signs Temperature 98.1 F 02/28/25 07:56 Pulse Rate 83 02/28/25 07:56 Respiratory Rate 18 02/28/25 07:56 Blood Pressure 184/103 02/28/25 07:56 Pulse Oximetry 99 02/28/25 07:58 Oxygen Delivery Me thod Room Air 02/28/25 07:58 MDM - Dental/Oral Medical Decision Making Patient presents with dental abscess right upper molar did incise the abscess with 18-gauge needle with good drainage he has no trismus this no fever will start him on Keflex he is to follow-up with dentist return if worsening he understands agrees to plan. Medical Records I reviewed the patient's medical records. No radiology studies performed this visit Discharge Plan Discharge Patient Disposition: Home Clinical Impression: Dental abscess Condition: Stable Prescriptions: New cephalexin 500 mg capsule 500 mg PO TID 7 Days Qty: 21 0RF No Action aripiprazole 15 mg tablet 15 mg PO DAILY 30 Days Qty: 30 2RF Discharge Orders: Discharge ED (Routine); Ordered 02/28/25 Ordered By: Rodney Summers Discharge Diet: Advance as tolerated Discharge Activity: Resume usual activity Patient Instructions: Dental Abscess (ED) Print Language: Syriac Coding Level of Care Code ED Actuarial Mathematician for Cheng Torrez
[2025-02-28 07:56] VITALS: BP 184/103; PULSE 83; RESP 18; TEMP 36.7; O2SAT 98
[2025-02-28 07:58] VITALS: O2SAT 99
[2025-02-28] MEDS: HYDROcodone-acetaminophen 7.5-325 mg Tablet 1 TAB PO (08:00)
[2025-02-28 08:01] VITALS: BP 145/91; PULSE 82; O2SAT 97
== END 2025-02-28 08:02 | disposition home or self-care (01) ==
PROVIDERS: Emergency Provider Emergency Medicine
DX: K04.7 Periapical abscess without sinus (principal); F17.210 Nicotine dependence, cigarettes, uncomplicated; F17.290 Nicotine dependence, other tobacco product, uncomplicated
CPT/HCPCS: 41800; 99283; J9999